=== PATIENT | female | born 1930 | race Caucasian/White ===

== ENCOUNTER 2018-04-25 14:05 | Inpatient (IN) ==
--- NOTE | 2018-04-25 14:45 | ED ---
HPI General Chief Complaint: Fall Stated Complaint: fall/rt arm injury Time Seen by Provider: 04/25/18 14:24 Source: patient Mode of arrival: ambulatory Limitations: no limitations History of Present Illness HPI Narrative: 87 old female here with right upper extremity pain and left knee pain after a trip and fall prior to arrival. She reports she tripped over a rug. She denies head injury loss of consciousness. She is anticoagulated on Coumadin denies altered sensation or weakness of the extremities. Pain is localized to the right upper extremity and left anterior knee. Severity is moderate. Aggravated by movement of the extremity and palpation. Slightly relieved with rest. Related Data Home Medications Medication Instructions Recorded Confirmed atorvastatin [Lipitor] 40 mg PO DAILY 04/25/18 04/25/18 calcium carbonate [Calcium 600] 600 mg PO BID 04/25/18 04/25/18 cyproheptadine 4 mg PO BID 04/25/18 04/25/18 denosumab [Prolia] 60 mg SUBCUT [id number] 04/25/18 04/25/18 diclofenac sodium [Voltaren] 1 applicatio TOPICAL DAILY PRN 04/25/18 04/25/18 furosemide 40 mg PO DAILY 04/25/18 04/25/18 hydrocodone-acetaminophen [Vicodin 1 tab PO Q4-6H PRN 04/25/18 04/25/18 HP] metoprolol tartrate 25 mg PO BID 04/25/18 04/25/18 nortriptyline 25 mg PO HS 04/25/18 04/25/18 potassium chloride [K-Tab] 10 meq PO DAILY 04/25/18 04/25/18 vitamin A22-[id number] acid 1 tab PO DAILY 04/25/18 04/25/18 vitamin K2 100 mcg PO DAILY 04/25/18 04/25/18 warfarin [Coumadin] See Label Instructions .ROUTE 04/25/18 04/25/18 .COMPLEX warfarin [Coumadin] See Label Instructions .ROUTE 04/25/18 04/25/18 .COMPLEX Allergies Allergy/AdvReac Type Severity Reaction Status Date / Time codeine Allergy Severe Nausea Unverified 04/25/18 14:12 monosodium glutamate Allergy Severe Anaphylaxis Unverified 04/25/18 14:12 lovastatin AdvReac Intermediate ELEVATED Unverified 04/25/18 14:12 LIVER ENZYMES phospholipids AdvReac Ulcers Uncoded 04/25/18 17:05 Review of Systems ROS: all other systems reviewed are negative [facility] [place] Medical History Medical History A-fib (Acute) Age related osteoporosis (Acute) CHF (congestive heart failure) (Acute) High cholesterol (Acute) History of GI bleed (Acute) History of hysterectomy (Acute) Hypertension (Acute) Osteoarthritis (Acute) Pacemaker (Acute) Surgical History Surgical History H/O varicose vein ligation and stripping (Acute) History of prior ablation treatment (Acute) Hx of bilateral cataract extraction (Acute) Hx of tonsillectomy (Acute) Social History Social History Substance History: No History of Abuse Smoking Status: Never smoker How Often Do You Have a Drink Containing Alcohol: Never Recent Travel in [facility] within the Last 8 Weeks: No Recent Out of Country Travel within the Last 8 Weeks: No Immunization History Tetanus Immunization: >5 Years Exam Narrative Exam Narrative: GENERAL: Well-nourished, well-developed patient. SKIN: Focused skin assessment warm/dry. HEAD: Normocephalic. Atraumatic EYES: PERRLA. EOMI. No injection or drainage. NECK: Supple, trachea midline. No cervical midline tenderness. CARDIOVASCULAR: Regular rate and rhythm without murmurs, gallops, or rubs. RESPIRATORY: Breath sounds equal bilaterally. No accessory muscle use. GASTROINTESTINAL: Abdomen soft, non-tender, nondistended. MUSCULOSKELETAL: No cyanosis, or edema. No chest wall tenderness.+ Tenderness to the left hip. RUE: Tenderness throughout the entire humerus and forearm. Notable swelling and ecchymosis to the distal humerus. Palpable radial pulse. Distal sensation intact. Cap refill intact. LLE: Notable swelling and ecchymosis to the anterior aspect of the left knee. Tenderness to palpation. No obvious deformity. Limited flexion extension due to pain. Palpable distal pulses. Distal sensation intact. Cap refill intact. BACK: Nontender spine without obvious deformity. No CVA tenderness. Course Initial Documented Vital Signs Temperature 98.2 F 04/25/18 14:08 Pulse Rate 84 04/25/18 14:08 Respiratory Rate 16 04/25/18 14:08 Blood Pressure 102/65 04/25/18 14:08 Pulse Oximetry 100 04/25/18 14:08 Last Documented Vital Signs Temperature 97.8 F 04/26/18 04:30 Pulse Rate 80 04/26/18 04:30 Respiratory Rate 18 04/26/18 04:30 Blood Pressure 123/72 04/26/18 04:30 Pulse Oximetry 95 04/26/18 04:30 Medical Decision Making EMILY Attestation EMILY supervised visit: Yes Attestation: I, Dr. Cruz, have reviewed the advance practice practitioner's documentation and am in agreement, met with the patient face to face, made the diagnosis, and the medical decision making was done by me. *My assessment and Findings: Fracture humerus MDM Narrative Medical decision making narrative: 87 year old female here with injuries to the left hip, left knee, right upper extremity after trip and fall today. She has a normal neurologic exam. Right upper extremity is neurovascularly intact. She is anticoagulated on Coumadin. INR 3. X-ray reveal displaced fracture involving the distal humerus. Patient has significant pain which is difficult to control. Spoke with on-call orthopedist Dr. Green who reviewed x-rays. He reports this will need surgery. He would like patient transferred to the main hospital for surgical repair tentatively Wednesday or of this week. Patient will need to hold Coumadin. Speak with hospitalist regarding possible FFP in preparation for surgery. Spoke with Dr. Cohen [facility] who agrees to admit patient to their service. Medical Screen Exam Complete: Yes Emergency Medical Condition: Yes Differential Diagnosis Differential Diagnosis: Fracture, contusion, dislocation, subdural hematoma Lab Data Result diagrams: 04/26/18 05:54 04/26/18 05:54 Lab Results 04/25/18 04/25/18 04/25/18 Range/Units 16:22 16:22 16:22 CBC w Diff Auto diff final WBC 15.2 H (4.0-11.0) th/mm3 RBC 4.53 (4.00-5.30) mil/mm3 Hgb 14.0 (11.6-15.3) gm/dL Hct 43.0 (35.0-46.0) % MCV 94.8 (80.0-100.0) fL MCH 30.9 (27.0-34.0) pg MCHC 32.5 (32.0-36.0) % RDW 14.3 (11.6-17.2) % Plt Count 174 (150-450) th/mm3 MPV 11.0 (7.0-11.0) fL Neut % (Auto) 87.3 H (16.0-70.0) % Lymph % (Auto) 6.5 L (9.0-44.0) % Larue % (Auto) 4.4 (0.0-8.0) % Eos % (Auto) 0.4 (0.0-4.0) % Baso % (Auto) 1.4 (0.0-2.0) % Neut # (Auto) 13.2 H (1.8-7.7) th/mm3 Lymph # (Auto) 1.0 (1.0-4.8) th/mm3 Larue # (Auto) 0.7 (0.0-0.9) th/mm3 Eos # (Auto) 0.1 (0.0-0.4) th/mm3 Baso # (Auto) 0.2 (0.0-0.2) th/mm3 WBC Differential . Differential Comment . PT 29.9 H (9.8-11.6) sec INR 3.0 Ratio APTT 34.3 H (23.4-31.7) sec Sodium 140 (136-145) meq/L Potassium 3.8 (3.5-5.1) meq/L Chloride 101 (98-107) meq/L Carbon Dioxide 29.3 (21.0-32.0) meq/L Anion Gap 10 (5-15) meq/L BUN 7 (7-18) mg/dL Creatinine 0.96 (0.50-1.00) mg/dL Estimated GFR 55 L (>89) mL/min Random Glucose 125 H (74-106) mg/dL Calcium 8.3 L (8.5-10.1) mg/dL Ur Collection Type Urine Color (Yellw/Straw) Urine Clarity (Clear) Urine pH (5.0-8.5) Ur Specific [place] (1.002-1.035) Urine Protein (Neg-Trace) mg/dL Urine Glucose (UA) (Negative) mg/dL Urine Ketones (Negative) mg/dL Urine Occult Blood (Negative) Urine Nitrate (Negative) Urine Bilirubin (Negative) Urine Urobilinogen (Less than 2) mg/dL Ur Leukocyte Esterase (Negative) Ur Transition Epith Cell (None) /hpf Amorphous Sediment (None) /hpf Micro UA Comment Ur Microscopic Review Urine Collection Time hours 04/25/18 04/26/18 04/26/18 Range/Units 17:14 05:54 05:54 CBC w Diff WBC 10.6 (4.0-11.0) th/mm3 RBC 3.61 L (4.00-5.30) mil/mm3 Hgb 11.3 L D (11.6-15.3) gm/dL Hct 33.2 L (35.0-46.0) % MCV 92.1 (80.0-100.0) fL MCH 31.4 (27.0-34.0) pg MCHC 34.1 (32.0-36.0) % RDW 14.4 (11.6-17.2) % Plt Count 144 L (150-450) th/mm3 MPV 10.9 (7.0-11.0) fL Neut % (Auto) 75.1 H (16.0-70.0) % Lymph % (Auto) 15.1 (9.0-44.0) % Larue % (Auto) 9.7 H (0.0-8.0) % Eos % (Auto) 0.0 (0.0-4.0) % Baso % (Auto) 0.1 (0.0-2.0) % Neut # (Auto) 8.0 H (1.8-7.7) th/mm3 Lymph # (Auto) 1.6 (1.0-4.8) th/mm3 Larue # (Auto) 1.0 H (0.0-0.9) th/mm3 Eos # (Auto) 0.0 (0.0-0.4) th/mm3 Baso # (Auto) 0.0 (0.0-0.2) th/mm3 WBC Differential . Differential Comment Auto diff final PT 16.0 H D (9.8-11.6) sec INR 1.6 Ratio APTT (23.4-31.7) sec Sodium (136-145) meq/L Potassium (3.5-5.1) meq/L Chloride (98-107) meq/L Carbon Dioxide (21.0-32.0) meq/L Anion Gap (5-15) meq/L BUN (7-18) mg/dL Creatinine (0.50-1.00) mg/dL Estimated GFR (>89) mL/min Random Glucose (74-106) mg/dL Calcium (8.5-10.1) mg/dL Ur Collection Type Cath Urine Color Yellow (Yellw/Straw) Urine Clarity Clear (Clear) Urine pH 6.5 (5.0-8.5) Ur Specific [place] Less/equal 1.005 (1.002-1.035) Urine Protein Negative (Neg-Trace) mg/dL Urine Glucose (UA) Negative (Negative) mg/dL Urine Ketones Negative (Negative) mg/dL Urine Occult Blood Negative (Negative) Urine Nitrate Negative (Negative) Urine Bilirubin Negative (Negative) Urine Urobilinogen 0.2 (Less than 2) mg/dL Ur Leukocyte Esterase Negative (Negative) Ur Transition Epith Cell 1-5 H (None) /hpf Amorphous Sediment Few H (None) /hpf Micro UA Comment Cath-culture not ind Ur Microscopic Review Microscopic reviewed Urine Collection Time 1714 hours 04/26/18 Range/Units 05:54 CBC w Diff WBC (4.0-11.0) th/mm3 RBC (4.00-5.30) mil/mm3 Hgb (11.6-15.3) gm/dL Hct (35.0-46.0) % MCV (80.0-100.0) fL MCH (27.0-34.0) pg MCHC (32.0-36.0) % RDW (11.6-17.2) % Plt Count (150-450) th/mm3 MPV (7.0-11.0) fL Neut % (Auto) (16.0-70.0) % Lymph % (Auto) (9.0-44.0) % Larue % (Auto) (0.0-8.0) % Eos % (Auto) (0.0-4.0) % Baso % (Auto) (0.0-2.0) % Neut # (Auto) (1.8-7.7) th/mm3 Lymph # (Auto) (1.0-4.8) th/mm3 Larue # (Auto) (0.0-0.9) th/mm3 Eos # (Auto) (0.0-0.4) th/mm3 Baso # (Auto) (0.0-0.2) th/mm3 WBC Differential Differential Comment PT (9.8-11.6) sec INR Ratio APTT (23.4-31.7) sec Sodium 138 (136-145) meq/L Potassium 3.9 (3.5-5.1) meq/L Chloride 100 (98-107) meq/L Carbon Dioxide 29.6 (21.0-32.0) meq/L Anion Gap 8 (5-15) meq/L BUN 12 (7-18) mg/dL Creatinine 0.91 (0.50-1.00) mg/dL Estimated GFR 58 L (>89) mL/min Random Glucose 115 H (74-106) mg/dL Calcium 7.9 L (8.5-10.1) mg/dL Ur Collection Type Urine Color (Yellw/Straw) Urine Clarity (Clear) Urine pH (5.0-8.5) Ur Specific [place] (1.002-1.035) Urine Protein (Neg-Trace) mg/dL Urine Glucose (UA) (Negative) mg/dL Urine Ketones (Negative) mg/dL Urine Occult Blood (Negative) Urine Nitrate (Negative) Urine Bilirubin (Negative) Urine Urobilinogen (Less than 2) mg/dL Ur Leukocyte Esterase (Negative) Ur Transition Epith Cell (None) /hpf Amorphous Sediment (None) /hpf Micro UA Comment Ur Microscopic Review Urine Collection Time hours Imaging Data Radiologist's impression: Chest X-Ray 04/25/18 00:00 CONCLUSION: Interface in the right upper chest nonspecific with regard to skinfold versus pneumothorax. Recommend performing expiratory view of the chest for further evaluation. Cervical Spine CT 04/25/18 14:36 CONCLUSION: 1. No evidence of acute cervical compression fracture. 2. Degenerative changes of the cervical spine, as detailed above. 3. Mild to moderate central canal narrowing at C5-6. 4. Numerous lucencies throughout the cervical spine. While these may be degenerative, neoplasm cannot be entirely excluded. Recommend clinical correlation with history of malignancy. Forearm X-Ray 04/25/18 14:36 CONCLUSION: No acute fracture of the forearm identified. Head CT 04/25/18 14:36 CONCLUSION: Atrophy, otherwise negative for an acute process. Noel Bonds MD FACR . Hip X-Ray 04/25/18 14:36 CONCLUSION: Osteopenia, negative for fracture. Humerus X-Ray 04/25/18 14:36 CONCLUSION: Displaced fracture involving the distal humerus as above. Knee X-Ray 04/25/18 14:36 CONCLUSION: Mild osteoarthritis. Chest X-Ray 04/25/18 19:08 CONCLUSION: No evidence of pneumothorax on this expiratory view of the chest. Discharge Plan Discharge Disposition Patient Disposition: 30 Still Patient Discharge Details Diagnosis: Fracture, humerus closed Physicians Team ED Provider: Emre Cruz ED Midlevel Provider: Aga Hernandes Primary Care Provider: Jorge Gee Attending Provider: Jesus Cohen Other Providers: Kody Green ; Ralph Pink Status ED Status: Left Department Discharge Information Discharge Date/Time: 04/25/18 19:55
--- NOTE | 2018-04-25 15:09 | XR ---
EXAM DATE: 04/25/2018 3:05 PM EST AGE/SEX: 87 years / Female INDICATIONS: Right forearm pain; fall today. CLINICAL DATA: This is the patient's initial encounter. Patient reports that signs and symptoms have been present for 1 day and indicates a pain score of 10/10. MEDICAL/SURGICAL HISTORY: None. None. COMPARISON: [facility], HUMERUS RIGHT MIN 2V, 04/25/2018. . FINDINGS: Bony structures are intact and in normal alignment. There is osteopenia. There are degenerative ennis es within the wrist. CONCLUSION: No acute fracture of the forearm identified. Electronically signed by: Rodrick Bonds MD 04/25/2018 3:08 PM EST
--- NOTE | 2018-04-25 15:10 | XR ---
EXAM DATE: 04/25/2018 3:08 PM EST AGE/SEX: 87 years / Female INDICATIONS: Right humerus pain; fall today. CLINICAL DATA: This is the patient's initial encounter. Patient reports that signs and symptoms have been present for 1 day and indicates a pain score of 10/10. MEDICAL/SURGICAL HISTORY: None. . Right total shoulder. COMPARISON: [facility], FOREARM RIGHT 2V, 04/25/2018. . FINDINGS: The examination demonstrates a 100% displaced spiral fracture through the distal humerus. This begins just below the patient's shoulder arthroplasty. CONCLUSION: Displaced fracture involving the distal humerus as above. Electronically signed by: Rodrick Bonds MD 04/25/2018 3:09 PM EST
--- NOTE | 2018-04-25 15:11 | XR ---
EXAM DATE: 04/25/2018 3:09 PM EST AGE/SEX: 87 years / Female INDICATIONS: Left knee pain; fall today. CLINICAL DATA: This is the patient's initial encounter. Patient reports that signs and symptoms have been present for 1 day and indicates a pain score of 4/10. MEDICAL/SURGICAL HISTORY: None. None. COMPARISON: No prior exams available for comparison. FINDINGS: The examination demonstrates mild tricompartmental osteoarthritis. 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 No acute fractures seen. Note is made of advanced atherosclerotic plaquing in the tibial vessels and some calcification along the interosseous membrane in the calf. CONCLUSION: Mild osteoarthritis. Electronically signed by: Rodrick Bonds MD 04/25/2018 3:10 PM EST
--- NOTE | 2018-04-25 15:11 | XR ---
EXAM DATE: 04/25/2018 3:06 PM EST AGE/SEX: 87 years / Female INDICATIONS: Left hip pain; fall today. CLINICAL DATA: This is the patient's initial encounter. Patient reports that signs and symptoms have been present for 1 day and indicates a pain score of 4/10. MEDICAL/SURGICAL HISTORY: None. None. COMPARISON: No prior exams available for comparison. FINDINGS: Bony structures are intact and in normal alignment. Joints are intact without dislocation or signifi cant arthropathy. Osseous density is normal. Soft tissues are unremarkable. No radiopaque foreign bodies seen. CONCLUSION: Osteopenia, negative for fracture. Electronically signed by: Noel Bonds MD 04/25/2018 3:10 PM EST
[2018-04-25] MEDS ORDERED: Morphine Inj 4 MG/ML Vial IM ONE (16:03)
[2018-04-25 16:32] LABS: Baso # (Auto) 0.2 th/mm3 (0.0-0.2); Baso % (Auto) 1.4 % (0.0-2.0); Eos # (Auto) 0.1 th/mm3 (0.0-0.4); Eos % (Auto) 0.4 % (0.0-4.0); Lymph % (Auto) 6.5 % (9.0-44.0); Mean Corpuscular HGB Conc 32.5 % (32.0-36.0); Mean Corpuscular Hemoglobin 30.9 pg (27.0-34.0); Mean Corpuscular Volume 94.8 fL (80.0-100.0); Mono # (Auto) 0.7 th/mm3 (0.0-0.9); Mono % (Auto) 4.4 % (0.0-8.0); Neut # (Auto) 13.2 th/mm3 (1.8-7.7); Neut % (Auto) 87.3 % (16.0-70.0); Platelet Count 174 th/mm3 (150-450); Red Blood Count 4.53 mil/mm3 (4.00-5.30); Red Cell Distribution Width 14.3 % (11.6-17.2); White Blood Count 15.2 th/mm3 (4.0-11.0)
[2018-04-25 16:44] LABS: Potassium 3.8 meq/L (3.5-5.1)
[2018-04-25 16:46] LABS: Calcium 8.3 mg/dL (8.5-10.1)
[2018-04-25 16:47] LABS: Activated Partial Thrombo Time 34.3 sec (23.4-31.7); Carbon Dioxide 29.3 meq/L (21.0-32.0); Prothrombin Time 29.9 sec (9.8-11.6)
--- NOTE | 2018-04-25 16:47 | CT ---
EXAM DATE: 04/25/2018 4:45 PM EST AGE/SEX: 87 years / Female INDICATIONS: Fall. Head and neck pain. CLINICAL DATA: This is the patient's initial encounter. Patient reports that signs and symptoms have been present for 1 day and indicates a pain score of 6/10. MEDICAL/SURGICAL HISTORY: Cardiovascular disease. Congestive heart failure. Hypertension. Pacemak er. Hysterectomy. RADIATION DOSE: 53.20 CTDI (mGy) COMPARISON: . TECHNIQUE: CT of the head without contrast. Using automated exposure control and adjustment of the mA and/or kV according to patient size, radiation dose was kept as low as reasonably achievable to ob tain optimal diagnostic quality images. DICOM format image data is available electronically for revi ew and comparison. FINDINGS: There is central and cortical atrophy with dilatation of ventricular and sulcal spaces. There is no parenchymal hemorrhage, acute infarction or mass lesion identified. There are no extra-axial fluid c ollections appreciated. Periventricular white matter changes are noted. The posterior fossa is unrem arkable with midline fourth ventricle. The portion of the orbits and paranasal sinuses visualized are unremarkable. CONCLUSION: Atrophy, otherwise negative for an acute process. Noel Bonds MD FACR . Electronically signed by: Noel Bonds MD 04/25/2018 4:46 PM EST
--- NOTE | 2018-04-25 16:57 | CT ---
EXAM DATE: 04/25/2018 4:45 PM EST AGE/SEX: 87 years / Female INDICATIONS: Fall. Head and neck pain. CLINICAL DATA: This is the patient's initial encounter. Patient reports that signs and symptoms have been present for 1 day and indicates a pain score of 9/10. MEDICAL/SURGICAL HISTORY: Cardiovascular disease. Congestive heart failure. Hypertension. Hys terectomy. Pacemaker. RADIATION DOSE: 26.67 CTDI (mGy) COMPARISON: No prior exams available for comparison. TECHNIQUE: Contiguous axial images were obtained using helical multirow detector technique. The vol umetric data was post-processed with multiplanar reconstruction in oblique axial, sagittal, and coron al planes. Using automated exposure control and adjustment of the mA and/or kV according to patient s ize, radiation dose was kept as low as reasonably achievable to obtain optimal diagnostic quality gladys ges. DICOM format image data is available electronically for review and comparison. FINDINGS: Rightward curvature of the cervical spine. Minimal retrolisthesis of C2 on C3 and C5 on C6. No eviden ce of acute compression fracture. Numerous lucencies throughout the cervical spine. Diffuse severe de generative disc disease essentially complete loss of the disc spaces. Posterior disc osteophyte compl ex at C5-6 results in [id number] central canal narrowing. Multilevel bilateral uncovertebral tirso int hypertrophy. Moderate to severe multilevel bilateral facet arthrosis. Focally severe neuroforamin al narrowing at C5-6 bilaterally and C6-7 on the left. Focal widening of the C4-5 neural foramina on the left. Subcentimeter nodule in the medial right lung apex. CONCLUSION: 1. No evidence of acute cervical compression fracture. 2. Degenerative changes of the cervical spine, as detailed above. 3. Mild to moderate central canal narrowing at C5-6. 4. Numerous lucencies throughout the cervical spine. While these may be degenerative, neoplasm canno t be entirely excluded. Recommend clinical correlation with history of malignancy. Electronically signed by: Libby Alvarez MD 04/25/2018 4:56 PM EST
[2018-04-25 17:19] LABS: Bilirubin,Urine Negative (Negative); Clarity,Urine Clear (Clear); Color,Urine Yellow (Yellw/Straw); Glucose,Urine (UA) Negative (Negative); Leukocyte Esterase,Urine Negative (Negative); Nitrite,Urine Negative (Negative); PH,Urine 6.5 (5.0-8.5); Specific Gravity,Urine Less/Equal 1.005 (1.002-1.035); Urobilinogen,Urine 0.2 mg/dL (Less than 2)
[2018-04-25 17:25] LABS: Amorphous Sediment,Urine Few /hpf
[2018-04-25] MEDS ORDERED: Morphine Inj 4 MG/ML Vial IV.PUSH ONE (17:47)
[2018-04-25] MEDS ORDERED: Acetaminophen 325 MG Tablet PO PRN (18:02)
--- NOTE | 2018-04-25 18:11 | P.HPIM ---
History of Present Illness Primary Care Physician: Jorge Gee MD, PhD Chief Complaint: fall History of Present Illness: This is an 87-year-old female patient with past medical history which includes atrial fibrillation, GERD, hypertension and hyperlipidemia. Patient presented to the emergency department today after a trip and fall. Patient reports right upper extremity pain and left knee pain after her fall. She reports she tripped over a rug. She denies head injury loss of consciousness. She is anticoagulated on Coumadin denies altered sensation or weakness of the extremities. Pain is localized to the right upper extremity and left anterior knee. Severity is moderate. Aggravated by movement of the extremity and palpation. Slightly relieved with rest. Patient denies fevers, chills, N/V/D/C, SOB or chest pain. Humerus X-Ray 04/25/18 Displaced fracture involving the distal humerus as above. INR 3.0 PMH: Previous skin cancer on nose status post radiation, atrial fibrillation, GERD, hypertension and hyperlipidemia Medications and Allergies Allergies Allergy/AdvReac Type Severity Reaction Status Date / Time codeine Allergy Severe Nausea Unverified 04/25/18 14:12 monosodium glutamate Allergy Severe Anaphylaxis Unverified 04/25/18 14:12 lovastatin AdvReac Intermediate ELEVATED Unverified 04/25/18 14:12 LIVER ENZYMES phospholipids AdvReac Ulcers Uncoded 04/25/18 17:05 Home Medications Medication Instructions Recorded Confirmed Type atorvastatin [Lipitor] 40 mg PO DAILY 04/25/18 04/25/18 History calcium carbonate [Calcium 600] 600 mg PO BID 04/25/18 04/25/18 History cyproheptadine 4 mg PO BID 04/25/18 04/25/18 History denosumab [Prolia] 60 mg SUBCUT [id number] 04/25/18 04/25/18 History diclofenac sodium [Voltaren] 1 applicatio TOPICAL DAILY PRN 04/25/18 04/25/18 History furosemide 40 mg PO DAILY 04/25/18 04/25/18 History hydrocodone-acetaminophen [Vicodin 1 tab PO Q4-6H PRN 04/25/18 04/25/18 History HP] metoprolol tartrate 25 mg PO BID 04/25/18 04/25/18 History nortriptyline 25 mg PO HS 04/25/18 04/25/18 History potassium chloride [K-Tab] 10 meq PO DAILY 04/25/18 04/25/18 History vitamin [id number] acid 1 tab PO DAILY 04/25/18 04/25/18 History vitamin K2 100 mcg PO DAILY 04/25/18 04/25/18 History warfarin [Coumadin] See Label Instructions .ROUTE 04/25/18 04/25/18 History .COMPLEX warfarin [Coumadin] See Label Instructions .ROUTE 04/25/18 04/25/18 History .COMPLEX Active Medications: Active Medications Acetaminophen (Tylenol) 650 mg PO Q4H PRN PRN Reason: Temp > 100.4 Al Hydroxide/Mg Hydroxide (Milk Of Magnesia Liq) 30 ml PO Q12H PRN PRN Reason: Mild Constipation Potassium Chloride/Sodium Chloride (Potassium Chlor 20 Meq/Nacl 0.45% Inj) 1, 000 mls @ 84 mls/hr IV.CONT .[id number] ESHA Ondansetron HCl (Zofran Inj) 4 mg IV.PUSH Q6H PRN PRN Reason: NAUSEA OR VOMITING Phytonadione (Mephyton Liq) 5 mg PO DAILY ESHA Senna/Docusate Sodium (Nichol-Colace) 1 tab PO BID ESHA Sodium Chloride (Ns Flush) 2 ml IV.FLUSH PRN PRN PRN Reason: FLUSH AFTER USING IV ACCESS Physical Exam Vital signs: Last Vital Signs Temp 98.2 F 04/25/18 14:08 Pulse 90 04/25/18 17:55 Resp 20 04/25/18 17:55 BP 109/66 04/25/18 17:55 Pulse Ox 98 04/25/18 17:55 Results Labs CBC & Chem 7: 04/25/18 16:22 04/25/18 16:22 Caprini VTE Risk Assessment Caprini Risk Assessment Model: Point Value = 1 Point Value = 2 Point Value = 3 Point Value = 5 Age 41-60 Minor surgery BMI > 25 kg/m2 Swollen legs Varicose veins or History of unexplained or recurrent spontaneous Oral contraceptives or hormone replacement Sepsis (< 1 month) Serious lung disease, including pneumonia (< 1 month) Abnormal pulmonary function Acute myocardial infarction Congestive heart failure (< 1 month) History of inflammatory bowel disease Medical patient at bed rest Age 61-74 Arthroscopic surgery Major open surgery (> 45 min) Laparoscopic surgery (> 45 min) Malignancy Confined to bed (> 72 hours) Immobilizing plaster cast Central venous access Age >= 75 History of VTE Family history of VTE Factor V Leiden Prothrombin [id number] Lupus anticoagulant Anticardiolipin antibodies Elevated serum homocysteine Heparin-induced thrombocytopenia Other congenital or acquired thrombophilia Stroke (< 1 month) Elective arthroplasty Hip, pelvis, or leg fracture Acute spinal cord injury (< 1 month) Prophylaxis Regimen: Total Risk Factor Score Risk Level Prophylaxis Regimen 0-1 Low Early ambulation 2 Moderate Order ONE of the following: *Sequential Compression Device (SCD) *Heparin 5000 units SQ BID 3-4 Higher Order ONE of the following medications: *Heparin 5000 units SQ TID *Enoxaparin/Lovenox 40 mg SQ daily (WT < 150 kg, CrCl > 30 mL/min) *Enoxaparin/Lovenox 30 mg SQ daily (WT < 150 kg, CrCl > 10-29 mL/min) *Enoxaparin/Lovenox 30 mg SQ BID (WT < 150 kg, CrCl > 30 mL/min) AND/OR *Sequential Compression Device (SCD) 5 or more Highest Order ONE of the following medications: *Heparin 5000 units SQ TID (Preferred with Epidurals) *Enoxaparin/Lovenox 40 mg SQ daily (WT < 150 kg, CrCl > 30 mL/min) *Enoxaparin/Lovenox 30 mg SQ daily (WT < 150 kg, CrCl > 10-29 mL/min) *Enoxaparin/Lovenox 30 mg SQ BID (WT < 150 kg, CrCl > 30 mL/min) AND *Sequential Compression Device (SCD) Assessment and Plan Plan This is an 87-year-old female patient with past medical history which includes atrial fibrillation, GERD, hypertension and hyperlipidemia. Patient presented to the emergency department today after a trip and fall. Patient reports right upper extremity pain and left knee pain after her fall. She reports she tripped over a rug. She denies head injury loss of consciousness. She is anticoagulated on Coumadin denies altered sensation or weakness of the extremities. Pain is localized to the right upper extremity and left anterior knee. Severity is moderate. Aggravated by movement of the extremity and palpation. Slightly relieved with rest. Patient denies fevers, chills, N/V/D/C, SOB or chest pain. Cervical Spine CT 04/25/18 1. No evidence of acute cervical compression fracture. 2. Degenerative changes of the cervical spine, as detailed above. 3. Mild to moderate central canal narrowing at C5-6. 4. Numerous lucencies throughout the cervical spine. While these may be degenerative, neoplasm cannot be entirely excluded. Recommend clinical correlation with history of malignancy. Forearm X-Ray 04/25/18 No acute fracture of the forearm identified. Head CT 04/25/18 Atrophy, otherwise negative for an acute process. Hip X-Ray 04/25/18 Osteopenia, negative for fracture. Humerus X-Ray 04/25/18 Displaced fracture involving the distal humerus as above. Knee X-Ray 04/25/18 Mild osteoarthritis.
[2018-04-25] MEDS ORDERED: HYDROmorphone PF Inj 0.5 MG/0.5 ML Syringe IV.PUSH PRN (18:13)
[2018-04-25] MEDS ORDERED: KCL 20 mEq/NACL 0.45% Inj 1,000 ML IV.CONT SCH (18:15)
--- NOTE | 2018-04-25 18:39 | XR ---
EXAM DATE: 04/25/2018 6:21 PM EST AGE/SEX: 87 years / Female INDICATIONS: Evaluate for pneumonia, pneumothorax, and communicable disease. Preop for right humeru s surgery. CLINICAL DATA: This is the patient's initial encounter. Patient reports that signs and symptoms have been present for 1 day and indicates a pain score of 0/10. MEDICAL/SURGICAL HISTORY: . Cardiovascular disease. Congestive heart failure. Hypertension. . Hysterectomy. Pacemaker. [place] [facility] [place]. [facility], CHEST SINGLE AP, 05/04/2011. . FINDINGS: The lungs are hyperaerated. No evidence of infiltrate or pleural effusion. Both hemidiaphragms well d elineated. Cardiac pacer with [address] Metallic suture mid left clavicle. Angiocath in the r ight supraclavicular region. In the lateral and upper right chest, there are 2 interfaces which are of uncertain significance; one probably represents skinfold from the axilla. The other, located in the interspace posterior fourth fifth and sixth ribs could represent either pneumothorax or skinfold. CONCLUSION: Interface in the right upper chest nonspecific with regard to skinfold versus pneumothorax. Recommend performing expiratory view of the chest for further evaluation. Electronically signed by: King Hua MD 04/25/2018 6:37 PM EST
--- NOTE | 2018-04-25 19:40 | XR ---
EXAM DATE: 04/25/2018 7:24 PM EST AGE/SEX: 87 years / Female INDICATIONS: Evaluate for pneumothorax. CLINICAL DATA: This is the patient's subsequent encounter. Patient reports that signs and symptoms h ave been present for 1 day and indicates a pain score of 0/10. MEDICAL/SURGICAL HISTORY: . Cardiovascular disease. Congestive heart failure. Hypertension. . Hysterectomy. Pacemaker. COMPARISON: [facility], CHEST 1V SINGLE AP, 04/25/2018. . FINDINGS: A frontal expiratory view chest was performed. Lung markings are seen in the periphery of both lungs. Several interfaces are projected over the lateral right chest which probably represent skin folds an d has similar appearance to the prior chest x-ray. The interface of the right apex is not reproduced. The heart is normal size. Both hemidiaphragms well delineated. CONCLUSION: No evidence of pneumothorax on this expiratory view of the chest. Electronically signed by: King Hua MD 04/25/2018 7:39 PM EST
[2018-04-25] MEDS: Senna/Docusate Sodium 8.6/50 MG Tablet PO SCH (23:32)
[2018-04-25] MEDS: Metoprolol Tartrate 25 MG Tablet PO SCH (23:32)
[2018-04-25] MEDS: Calcium Carbonate 500 MG Tablet PO SCH (23:33)
[2018-04-25] MEDS: Nortriptyline 25 MG Capsule PO SCH (23:33)
[2018-04-25] MEDS: KCL 20 mEq/NACL 0.45% Inj 1,000 ML IV.CONT SCH (23:35)
[2018-04-26 06:23] LABS: Baso % (Auto) 0.1 % (0.0-2.0); Hematocrit 33.2 % (35.0-46.0); Hemoglobin 11.3 gm/dL (11.6-15.3); Lymph # (Auto) 1.6 th/mm3 (1.0-4.8); Lymph % (Auto) 15.1 % (9.0-44.0); Mean Corpuscular HGB Conc 34.1 % (32.0-36.0); Mean Corpuscular Hemoglobin 31.4 pg (27.0-34.0); Mean Corpuscular Volume 92.1 fL (80.0-100.0); Mean Platelet Volume 10.9 fL (7.0-11.0); Mono % (Auto) 9.7 % (0.0-8.0); Neut % (Auto) 75.1 % (16.0-70.0); Platelet Count 144 th/mm3 (150-450); Red Blood Count 3.61 mil/mm3 (4.00-5.30); Red Cell Distribution Width 14.4 % (11.6-17.2); White Blood Count 10.6 th/mm3 (4.0-11.0)
[2018-04-26 06:37] LABS: Calcium 7.9 mg/dL (8.5-10.1); Carbon Dioxide 29.6 meq/L (21.0-32.0); Potassium 3.9 meq/L (3.5-5.1)
[2018-04-26 06:39] LABS: INR 1.6 Ratio
--- NOTE | 2018-04-26 06:48 | P.PNOP ---
Subjective Interval history: Transferred from [place] due to fracture of right humerus. Previous right shoulder replacement many years ago. She is splinted. No other injuries. Patient is on Coumadin with an INR of 3.0 yesterday Physical Exam Vital signs: Vital Signs 04/25/18 14:08 04/25/18 17:00 04/25/18 17:55 Temperature 98.2 F Pulse Rate 84 80 90 Respiratory Rate 16 18 20 Blood Pressure 102/65 117/60 109/66 Pulse Oximetry 100 96 98 04/25/18 20:45 04/25/18 23:40 04/26/18 04:30 Temperature 97.9 F 97.8 F 97.8 F Pulse Rate 88 81 80 Respiratory Rate 18 17 18 Blood Pressure 113/79 120/60 123/72 Pulse Oximetry 97 99 95 Intake & Output 04/25/18 04/25/18 04/26/18 06:59 18:59 06:59 Intake Total 120 / 120 Output Total 0 / 0 Balance 120 / 120 Weight 44.8 kg 44.8 kg Intake: Oral 120 / 120 Output: Urine 0 / 0 Other: # Voids 0 Date of Last Bowel Movement 04/24/18 Narrative: Right upper extremity: Splint intact. No pain wrist or finger movement. Intact sensation of her radial ulnar median nerve distributions with good capillary refills. Left upper extremity: Full range of motion neurovascular intact Bilateral lower extremities: Full range of motion and neurovascularly intact Results - Labs CBC & Chem 7: 04/26/18 05:54 04/26/18 05:54 Laboratory Results - last 24 hr 04/25/18 04/25/18 04/25/18 16:22 16:22 16:22 CBC w Diff Auto diff final WBC 15.2 H RBC 4.53 Hgb 14.0 Hct 43.0 MCV 94.8 MCH 30.9 MCHC 32.5 RDW 14.3 Plt Count 174 MPV 11.0 Neut % (Auto) 87.3 H Lymph % (Auto) 6.5 L Desha % (Auto) 4.4 Eos % (Auto) 0.4 Baso % (Auto) 1.4 Neut # (Auto) 13.2 H Lymph # (Auto) 1.0 Desha # (Auto) 0.7 Eos # (Auto) 0.1 Baso # (Auto) 0.2 WBC Differential . Differential Comment . PT 29.9 H INR 3.0 APTT 34.3 H Sodium 140 Potassium 3.8 Chloride 101 Carbon Dioxide 29.3 Anion Gap 10 BUN 7 Creatinine 0.96 Estimated GFR 55 L Random Glucose 125 H Calcium 8.3 L Ur Collection Type Urine Color Urine Clarity Urine pH Ur Specific [place] Urine Protein Urine Glucose (UA) Urine Ketones Urine Occult Blood Urine Nitrate Urine Bilirubin Urine Urobilinogen Ur Leukocyte Esterase Ur Transition Epith Cell Amorphous Sediment Micro UA Comment Ur Microscopic Review Urine Collection Time 04/25/18 04/26/18 04/26/18 17:14 05:54 05:54 CBC w Diff WBC 10.6 RBC 3.61 L Hgb 11.3 L D Hct 33.2 L MCV 92.1 MCH 31.4 MCHC 34.1 RDW 14.4 Plt Count 144 L MPV 10.9 Neut % (Auto) 75.1 H Lymph % (Auto) 15.1 Desha % (Auto) 9.7 H Eos % (Auto) 0.0 Baso % (Auto) 0.1 Neut # (Auto) 8.0 H Lymph # (Auto) 1.6 Desha # (Auto) 1.0 H Eos # (Auto) 0.0 Baso # (Auto) 0.0 WBC Differential . Differential Comment Auto diff final PT 16.0 H D INR 1.6 APTT Sodium Potassium Chloride Carbon Dioxide Anion Gap BUN Creatinine Estimated GFR Random Glucose Calcium Ur Collection Type Cath Urine Color Yellow Urine Clarity Clear Urine pH 6.5 Ur Specific [place] Less/equal 1.005 Urine Protein Negative Urine Glucose (UA) Negative Urine Ketones Negative Urine Occult Blood Negative Urine Nitrate Negative Urine Bilirubin Negative Urine Urobilinogen 0.2 Ur Leukocyte Esterase Negative Ur Transition Epith Cell 1-5 H Amorphous Sediment Few H Micro UA Comment Cath-culture not ind Ur Microscopic Review Microscopic reviewed Urine Collection Time 1714 04/26/18 05:54 CBC w Diff WBC RBC Hgb Hct MCV MCH MCHC RDW Plt Count MPV Neut % (Auto) Lymph % (Auto) Desha % (Auto) Eos % (Auto) Baso % (Auto) Neut # (Auto) Lymph # (Auto) Desha # (Auto) Eos # (Auto) Baso # (Auto) WBC Differential Differential Comment PT INR APTT Sodium 138 Potassium 3.9 Chloride 100 Carbon Dioxide 29.6 Anion Gap 8 BUN 12 Creatinine 0.91 Estimated GFR 58 L Random Glucose 115 H Calcium 7.9 L Ur Collection Type Urine Color Urine Clarity Urine pH Ur Specific [place] Urine Protein Urine Glucose (UA) Urine Ketones Urine Occult Blood Urine Nitrate Urine Bilirubin Urine Urobilinogen Ur Leukocyte Esterase Ur Transition Epith Cell Amorphous Sediment Micro UA Comment Ur Microscopic Review Urine Collection Time - Imaging Impressions Chest X-Ray 04/25/18 00:00 CONCLUSION: Interface in the right upper chest nonspecific with regard to skinfold versus pneumothorax. Recommend performing expiratory view of the chest for further evaluation. Cervical Spine CT 04/25/18 14:36 CONCLUSION: 1. No evidence of acute cervical compression fracture. 2. Degenerative changes of the cervical spine, as detailed above. 3. Mild to moderate central canal narrowing at C5-6. 4. Numerous lucencies throughout the cervical spine. While these may be degenerative, neoplasm cannot be entirely excluded. Recommend clinical correlation with history of malignancy. Forearm X-Ray 04/25/18 14:36 CONCLUSION: No acute fracture of the forearm identified. Head CT 04/25/18 14:36 CONCLUSION: Atrophy, otherwise negative for an acute process. Noel Bonds MD FACR . Hip X-Ray 04/25/18 14:36 CONCLUSION: Osteopenia, negative for fracture. Humerus X-Ray 04/25/18 14:36 CONCLUSION: Displaced fracture involving the distal humerus as above. Knee X-Ray 04/25/18 14:36 CONCLUSION: Mild osteoarthritis. Chest X-Ray 04/25/18 19:08 CONCLUSION: No evidence of pneumothorax on this expiratory view of the chest. Assessment and Plan - Assessment and Plan Right periprosthetic humeral shaft fracture Maintain splint Due to INR of 3.0 surgery is unable to be proceeded with due to bleeding risks. Hold Coumadin Give vitamin K Surgery will either be tomorrow or when blood is therapeutic Nonweightbearing right upper extremity Resume diet Recheck INR tomorrow morning
[2018-04-26] MEDS: KCL 20 mEq/NACL 0.45% Inj 1,000 ML IV.CONT SCH (08:54)
[2018-04-26] MEDS ORDERED: Phytonadione 5 MG/SWFI 5 ML Oral Syringe PO SCH (09:00)
[2018-04-26] MEDS: HYDROmorphone PF Inj 1 MG/ML Ampul IV.PUSH PRN ×2 (09:40→13:45)
[2018-04-26] MEDS: Metoprolol Tartrate 25 MG Tablet PO SCH ×2 (09:58→20:29)
[2018-04-26] MEDS: Senna/Docusate Sodium 8.6/50 MG Tablet PO SCH ×2 (09:58→20:30)
[2018-04-26] MEDS: Calcium Carbonate 500 MG Tablet PO SCH ×2 (09:59→20:30)
[2018-04-26] MEDS ORDERED: Phytonadione 2.5 MG/SWFI 2.5 ML Oral Syringe PO ONE (11:00)
--- NOTE | 2018-04-26 11:56 | P.HPIM ---
History of Present Illness Primary Care Physician: Jorge Gee MD, PhD Chief Complaint: right upper extremity pain and left knee pain after a trip and fall History of Present Illness: This is an 87-year-old female patient with past medical history which includes atrial fibrillation currently on Coumadin INR admission 3.0, GERD, hypertension, hyperlipidemia and pulmonary hypertension. Patient was in her normal state of health until she tripped over a rug causing her to fall. Patient presented to [facility] with complaints of right upper extremity pain and left knee pain after a trip and fall prior to arrival. She reports she tripped over a rug. She denies head injury loss of consciousness., altered sensation or weakness of the extremities. Pain is localized to the right upper extremity and left anterior knee. Severity is moderate. Aggravated by movement of the extremity and palpation. Slightly relieved with rest. Patient denies shortness of breath chest pain nausea vomiting diarrhea constipation fevers or chills. PMH: atrial fibrillation currently on Coumadin INR admission 3.0, GERD, hypertension , hyperlipidemia and pulmonary hypertension PSXH: Appendectomy, needle biopsy of the breast, cataract surgery, AV node ablation, colonoscopy, EGD, hemorrhoidectomy, nerve block trans-foraminal epidural cervical, pacemaker placement, total shoulder repair, tonsillectomy and adenoidectomy, THAO/BSO and ligation of varicose veins FMH: Reviewed and noncontributory Social history: Denies EtOH use tobacco use or illicit drug use Inpatient Certification Inpatient Certification: I certify that the inpatient services were ordered in accordance with Medicare regulations governing the order. This includes certification that hospital inpatient services are reasonable and necessary and in the case of services not specified as inpatient-only under 42 CFR 419.22(n), that they are appropriately provided as inpatient services in accordance to with the 2-midnight benchmark under 43 CFR 412.3(e) Estimated Total Length of Stay (Days): 3 Plans for Post Hospital Care: Not yet determined Medications and Allergies Allergies Allergy/AdvReac Type Severity Reaction Status Date / Time codeine Allergy Severe Nausea Unverified 04/25/18 14:12 monosodium glutamate Allergy Severe Anaphylaxis Unverified 04/25/18 14:12 lovastatin AdvReac Intermediate ELEVATED Unverified 04/25/18 14:12 LIVER ENZYMES phospholipids AdvReac Ulcers Uncoded 04/25/18 17:05 Home Medications Medication Instructions Recorded Confirmed Type atorvastatin [Lipitor] 40 mg PO DAILY 04/25/18 04/25/18 History calcium carbonate [Calcium 600] 600 mg PO BID 04/25/18 04/25/18 History cyproheptadine 4 mg PO BID 04/25/18 04/25/18 History denosumab [Prolia] 60 mg SUBCUT [id number] 04/25/18 04/25/18 History diclofenac sodium [Voltaren] 1 applicatio TOPICAL DAILY PRN 04/25/18 04/25/18 History furosemide 40 mg PO DAILY 04/25/18 04/25/18 History hydrocodone-acetaminophen [Vicodin 1 tab PO Q4-6H PRN 04/25/18 04/25/18 History HP] metoprolol tartrate 25 mg PO BID 04/25/18 04/25/18 History nortriptyline 25 mg PO HS 04/25/18 04/25/18 History potassium chloride [K-Tab] 10 meq PO DAILY 04/25/18 04/25/18 History vitamin [id number] acid 1 tab PO DAILY 04/25/18 04/25/18 History vitamin K2 100 mcg PO DAILY 04/25/18 04/25/18 History warfarin [Coumadin] See Label Instructions .ROUTE 04/25/18 04/25/18 History .COMPLEX warfarin [Coumadin] See Label Instructions .ROUTE 04/25/18 04/25/18 History .COMPLEX Active Medications: Active Medications Acetaminophen (Tylenol) 650 mg PO Q4H PRN PRN Reason: Temp > 100.4 Hydrocodone Bitart/Acetaminophen ([place] 5/325) 1 tab PO Q4H PRN PRN Reason: pain 1 - 5, Al Hydroxide/Mg Hydroxide (Milk Of Magnesia Liq) 30 ml PO Q12H PRN PRN Reason: Mild Constipation Atorvastatin Calcium (Lipitor) 40 mg PO DAILY [facility] [place] Last Admin: 04/26/18 09:58 Dose: 40 mg Calcium Carbonate (Oscal) 500 mg PO BID [facility] Last Admin: 04/26/18 09:59 Dose: 500 mg Hydromorphone HCl (Dilaudid Pf Inj) 0.5 mg IV.PUSH Q4H PRN PRN Reason: PAIN 6-10 Last Admin: 04/26/18 09:40 Dose: 0.5 mg Potassium Chloride/Sodium Chloride (Potassium Chlor 20 Meq/Nacl 0.45% Inj) 1, 000 mls @ 84 mls/hr IV.CONT .[id number] [facility] [place] Stop: 04/26/18 18:03 Last Admin: 04/26/18 08:54 Dose: Not Given Metoprolol Tartrate (Lopressor) 25 mg PO BID [facility] [place] Last Admin: 04/26/18 09:58 Dose: 25 mg Nortriptyline HCl (Pamelor) 25 mg PO HS [facility] [place] Last Admin: 04/25/18 23:33 Dose: 25 mg Ondansetron HCl (Zofran Inj) 4 mg IV.PUSH Q6H PRN PRN Reason: NAUSEA OR VOMITING Senna/Docusate Sodium (Nichol-Colace) 1 tab PO BID [facility] Last Admin: 04/26/18 09:58 Dose: 1 tab Sodium Chloride (Ns Flush) 2 ml IV.FLUSH PRN PRN PRN Reason: FLUSH AFTER USING IV ACCESS Physical Exam Vital signs: Last Vital Signs Temp 98.2 F 04/26/18 08:00 Pulse 79 04/26/18 08:00 Resp 18 04/26/18 08:00 BP 126/67 04/26/18 08:00 Pulse Ox 96 04/26/18 08:00 Narrative: GENERAL: This is a well-nourished, well-developed patient, in no apparent distress. CARDIOVASCULAR: reg rate and rhythm RESPIRATORY: Clear to auscultation. Breath sounds equal bilaterally. No wheezes , rales, or rhonchi. GASTROINTESTINAL: Abdomen soft, non-tender, nondistended. Normal active bowel sounds MUSCULOSKELETAL: Extremities without clubbing, cyanosis, or edema. NEURO: awake and alert, periods of confusion. Moves all ext x4 right upper extremity and left lower extremity motion limited by pain Results Labs CBC & Chem 7: 04/26/18 05:54 04/26/18 05:54 Caprini VTE Risk Assessment Caprini VTE Risk Assessment: Moderate/High Risk (score >= 2) Caprini Risk Assessment Model: Point Value = 1 Point Value = 2 Point Value = 3 Point Value = 5 Age 41-60 Minor surgery BMI > 25 kg/m2 Swollen legs Varicose veins or History of unexplained or recurrent spontaneous Oral contraceptives or hormone replacement Sepsis (< 1 month) Serious lung disease, including pneumonia (< 1 month) Abnormal pulmonary function Acute myocardial infarction Congestive heart failure (< 1 month) History of inflammatory bowel disease Medical patient at bed rest Age 61-74 Arthroscopic surgery Major open surgery (> 45 min) Laparoscopic surgery (> 45 min) Malignancy Confined to bed (> 72 hours) Immobilizing plaster cast Central venous access Age >= 75 History of VTE Family history of VTE Factor V Leiden Prothrombin [id number] Lupus anticoagulant Anticardiolipin antibodies Elevated serum homocysteine Heparin-induced thrombocytopenia Other congenital or acquired thrombophilia Stroke (< 1 month) Elective arthroplasty Hip, pelvis, or leg fracture Acute spinal cord injury (< 1 month) Prophylaxis Regimen: Total Risk Factor Score Risk Level Prophylaxis Regimen 0-1 Low Early ambulation 2 Moderate Order ONE of the following: *Sequential Compression Device (SCD) *Heparin 5000 units SQ BID 3-4 Higher Order ONE of the following medications: *Heparin 5000 units SQ TID *Enoxaparin/Lovenox 40 mg SQ daily (WT < 150 kg, CrCl > 30 mL/min) *Enoxaparin/Lovenox 30 mg SQ daily (WT < 150 kg, CrCl > 10-29 mL/min) *Enoxaparin/Lovenox 30 mg SQ BID (WT < 150 kg, CrCl > 30 mL/min) AND/OR *Sequential Compression Device (SCD) 5 or more Highest Order ONE of the following medications: *Heparin 5000 units SQ TID (Preferred with Epidurals) *Enoxaparin/Lovenox 40 mg SQ daily (WT < 150 kg, CrCl > 30 mL/min) *Enoxaparin/Lovenox 30 mg SQ daily (WT < 150 kg, CrCl > 10-29 mL/min) *Enoxaparin/Lovenox 30 mg SQ BID (WT < 150 kg, CrCl > 30 mL/min) AND *Sequential Compression Device (SCD) Assessment and Plan Plan This is an 87-year-old female patient with past medical history which includes atrial fibrillation currently on Coumadin INR admission 3.0, GERD, hypertension , hyperlipidemia and pulmonary hypertension. Patient was in her normal state of health until she tripped over a rug causing her to fall. Patient presented to [facility] with complaints of right upper extremity pain and left knee pain after a trip and fall prior to arrival. She reports she tripped over a rug. She denies head injury loss of consciousness., altered sensation or weakness of the extremities. Pain is localized to the right upper extremity and left anterior knee. Severity is moderate. Aggravated by movement of the extremity and palpation. Slightly relieved with rest. Patient denies shortness of breath chest pain nausea vomiting diarrhea constipation fevers or chills. Right periprosthetic humeral shaft fracture Chest X-Ray 04/25/18 Interface in the right upper chest nonspecific with regard to skinfold versus pneumothorax. Recommend performing expiratory view of the chest for further evaluation. Cervical Spine CT 04/25/18 1. No evidence of acute cervical compression fracture. 2. Degenerative changes of the cervical spine, as detailed above. 3. Mild to moderate central canal narrowing at C5-6. 4. Numerous lucencies throughout the cervical spine. While these may be degenerative, neoplasm cannot be entirely excluded. Recommend clinical correlation with history of malignancy. Forearm X-Ray 04/25/18 No acute fracture of the forearm identified. Head CT 04/25/18 Atrophy, otherwise negative for an acute process. Hip X-Ray 04/25/18 Osteopenia, negative for fracture. Humerus X-Ray 04/25/18 Displaced fracture involving the distal humerus as above. Knee X-Ray 04/25/18Mild osteoarthritis. Chest X-Ray 04/25/18 No evidence of pneumothorax on this expiratory view of the chest. Consult orthopedic surgery, appreciate input Maintain splint Due to INR of 3.0 surgery is unable to be proceeded with due to bleeding risks. Hold Coumadin Give vitamin K Surgery will either be tomorrow or when blood is therapeutic Nonweightbearing right upper extremity Resume diet Recheck INR tomorrow morning consult to case management, pt may need SNF placement at the end of hospitalizations. Pt lives with her daughter Atrial fibrillation currently on Coumadin INR admission 3.0 Hold Coumadin pending procedure Repeat INR 04/26 was 1.6 Vitamin K given Continue metoprolol 25 mg twice daily Hypertension Continue metoprolol 25 mg p.o. twice daily Hyperlipidemia Continue atorvastatin 40 mg p.o. daily DVT prophylaxis bilateral SCDs Attending Attestation The exam, history, and the medical decision-making described in the above note were completed with the assistance of the mid-level provider. I reviewed and agree with the findings presented. I attest that I had a [id number] encounter with the patient on the same day, and personally performed and documented my assessment and findings in the medical record. Patient examined. Assessment and plan formulated with Leslie Jimenes PA-C. I agree with the above. CT C-spine (04/25) made mention of multiple luncenies. Studies reviewed with radiology. Pt had multiple imaging studies in the ER d/t fall. CT head and other imaging studies did NOT show lytic lesions. Multiple myeloma unlikely. No further w/u H&P: Quality VTE Deep Vein Thrombosis/Pulmonary Embolism Present on Admission: No
--- NOTE | 2018-04-26 12:48 | ECG ---
Date Performed: 04/25/2018 Time Performed: 22:06:15 PTAGE: 87 years EKG: ELECTRONIC VENTRICULAR PACEMAKER ABNORMAL RHYTHM ECG Since the PREVIOUS TRACING , no significant change noted PREVIOUS TRACIN05/04/2011 16.13 DOCTOR: Amy Emerson Interpretating Date/Time 04/26/2018 12:46:17
--- NOTE | 2018-04-26 17:12 | P.DIET ---
Nutritional Evaluation Type of nutrition evaluation: initial Nutrition screening: Weight Loss > 10 lbs Subjective Subjective Comments: Pt visited. Pt's daughter and nursing specialist at bedside. Pt's daughter says pt' s wt loss has been gradual due to decreased appetite. Pt's daughter says pt needs meats chopped up d/t it takes pt a long time to masticate meats. Pt does not care for Ensure; does like ice cream and other types of dairy products. Daughter reports pt has been on an appetite stimulant, Cyproheptadine x 2 to 3- months, and says she hasnt noted any improvement in this pt's appetite. Objective - Diagnosis Right humerus fracture - Objective % IBW: 102 Body Weight Used for Calculations: Actual (44.8 kg) Energy Needs - Lower Range (kCal/kg): 28 Energy Needs - Upper Range (kCal/kg): 33 Lower Limit kCal/kg (kCals): 1,254 Upper Limit kCal/kg (kCals): 1,478 Lower Limit Protein Factor (Grams per Kg): 1.2 Upper Limit Protein Factor (Grams per Kg): 1.5 Lower Protein Needs (Protein): 54 Upper Protein Needs (Protein): 67 Dietitian Reviewed in Medical Record: Current diet, Curent medications, Intake & Output, Labs, Medical history Diet Order: NPO Oral Diet Intake Amount: Fair 50-75% Objective Comments: PMH includes: AFib, Pacemaker, Age related osteoporosis, CHF, high cholesterol, h/o GI bleed, HTN Meds include: Lipitor, Oscal, Lopressor LBM 04/24 Assessment Assessment: Pt is at nutritional risk r/t unintentional wt loss. Rec a Mech Soft diet w/ chopped meats and extra gravy. Send Mighty Shake TID(= 300 kcal and 9g protein per serving). Labs reviewed. Dietitian will follow. Recommendations: 1. Rec a Mech Soft diet w/chopped meats and extra gravy 2. Send Mighty Shake TID 3. Dietitian will follow Dietitian to Monitor: Lab values, Supplement acceptance, Intake & Output, Diet tolerance, Weight change, PO Intake, Diet advancement, Medical course
[2018-04-26 19:46] LABS: Bacteria,Urine Rare /hpf; Bilirubin,Urine Negative (Negative); Clarity,Urine Hazy (Clear); Color,Urine Amber (Yellw/Straw); Glucose,Urine (UA) Negative (Negative); Hyaline Casts,Urine 18 /lpf (0-3); Leukocyte Esterase,Urine Negative (Negative); Mucus,Urine Few /lpf (Occasional); Nitrite,Urine Negative (Negative); Specific Gravity,Urine 1.014 (1.002-1.035)
[2018-04-26] MEDS: Nortriptyline 25 MG Capsule PO SCH (20:29)
[2018-04-27] MEDS ORDERED: Chlorhexidine Gluconate 2% 1 Pack (2 Cloths) TOPICAL ONE (03:41)
[2018-04-27] MEDS ORDERED: Sodium Chlor 0.9% Inj 500 ML IV.SIG SCH (04:00)
[2018-04-27 05:56] LABS: Baso % (Auto) 0.5 % (0.0-2.0); Eos % (Auto) 0.3 % (0.0-4.0); Hematocrit 27.7 % (35.0-46.0); Hemoglobin 9.6 gm/dL (11.6-15.3); Lymph # (Auto) 2.8 th/mm3 (1.0-4.8); Lymph % (Auto) 30.9 % (9.0-44.0); Mean Corpuscular HGB Conc 34.7 % (32.0-36.0); Mean Corpuscular Hemoglobin 31.5 pg (27.0-34.0); Mean Corpuscular Volume 90.7 fL (80.0-100.0); Mean Platelet Volume 10.9 fL (7.0-11.0); Mono # (Auto) 1.3 th/mm3 (0.0-0.9); Mono % (Auto) 14.5 % (0.0-8.0); Neut # (Auto) 4.8 th/mm3 (1.8-7.7); Neut % (Auto) 53.8 % (16.0-70.0); Platelet Count 138 th/mm3 (150-450); Red Blood Count 3.05 mil/mm3 (4.00-5.30); Red Cell Distribution Width 13.8 % (11.6-17.2); White Blood Count 8.9 th/mm3 (4.0-11.0)
[2018-04-27 06:00] LABS: INR 1.2 Ratio; Prothrombin Time 12.4 sec (9.8-11.6)
[2018-04-27 06:11] LABS: Calcium 8.6 mg/dL (8.5-10.1); Potassium 4.3 meq/L (3.5-5.1)
[2018-04-27] MEDS: Metoprolol Tartrate 25 MG Tablet PO SCH ×3 (06:21→20:01)
[2018-04-27] MEDS ORDERED: Sugammadex Inj 200 MG/2 ML Vial IV.PUSH ONE (06:46)
[2018-04-27] MEDS ORDERED: HYDROmorphone PF Inj 2 MG/ML Vial ONE (06:46)
[2018-04-27] MEDS ORDERED: ceFAZolin 1 GM Premix Inj 2 GM/100 ML PIGGYBACK IV.SIG ONE (07:02)
--- NOTE | 2018-04-27 07:02 | P.PNOP ---
Subjective Interval history: Resting comfortably Physical Exam Vital signs: Vital Signs 04/26/18 08:00 04/26/18 12:00 04/26/18 14:15 Temperature 98.2 F 97.9 F Pulse Rate 79 83 Respiratory Rate 18 18 16 Blood Pressure 126/67 103/56 L Pulse Oximetry 96 04/26/18 16:00 04/26/18 19:35 04/26/18 22:47 Temperature 97.8 F 98.2 F Pulse Rate 80 86 98 H Respiratory Rate 18 18 Blood Pressure 116/53 L 103/58 L Pulse Oximetry 92 L 93 L 04/27/18 00:00 04/27/18 00:13 04/27/18 02:14 Temperature 98.4 F Pulse Rate 97 H 84 Respiratory Rate 18 18 Blood Pressure 110/54 L Pulse Oximetry 96 04/27/18 03:35 Temperature 97.4 F L Pulse Rate 86 Respiratory Rate 17 Blood Pressure 112/56 L Pulse Oximetry 98 Intake & Output 04/26/18 04/27/18 04/27/18 18:59 06:59 18:59 Intake Total 600 / 600 0 / 0 Output Total 300 / 300 800 / 800 Balance 300 / 300 -800 / -800 Weight 44.8 kg Intake: Oral 600 / 600 0 / 0 Output: Urine Amount (Catheter) 300 / 300 800 / 800 Straight 300 / 300 800 / 800 Other: # Voids 0 Date of Last Bowel Movement 04/24/18 04/25/18 # Bowel Movements 0 0 Narrative: Remains in long-arm splint to right upper extremity. She has intact sensation with full extension flexion of all fingers. Right upper extremity is marked by Dr. Early - Urinary Catheter Management Straight Cath placed during this visit: yes, but has since been removed by the nurse Reason for continuing: Not indwelling catheter Insertion date: 04/27/18 Insertion time: 04:00 Removal date: 04/27/18 Removal time: 05:30 Results - Labs CBC & Chem 7: 04/27/18 05:29 04/27/18 05:29 Laboratory Results - last 24 hr 04/26/18 04/27/18 04/27/18 16:43 05:29 05:29 WBC 8.9 RBC 3.05 L Hgb 9.6 L Hct 27.7 L MCV 90.7 MCH 31.5 MCHC 34.7 RDW 13.8 Plt Count 138 L MPV 10.9 Neut % (Auto) 53.8 Lymph % (Auto) 30.9 [place] % (Auto) 14.5 H Eos % (Auto) 0.3 Baso % (Auto) 0.5 Neut # (Auto) 4.8 Lymph # (Auto) 2.8 [place] # (Auto) 1.3 H Eos # (Auto) 0.0 Baso # (Auto) 0.0 WBC Differential . Differential Comment Auto diff final PT INR Sodium 137 Potassium 4.3 Chloride 101 Carbon Dioxide 30.0 Anion Gap 6 BUN 13 Creatinine 0.78 Estimated GFR 70 L Random Glucose 75 Calcium 8.6 Urine Color [place] Urine Clarity Hazy H Urine pH 5.0 Ur Specific [place] 1.014 Urine Protein Negative Urine Glucose (UA) Negative Urine Ketones Negative Urine Occult Blood Negative Urine Nitrate Negative Urine Bilirubin Negative Urine Urobilinogen Less than 2 Ur Leukocyte Esterase Negative Urine RBC 1 Urine WBC 1 Urine Bacteria Rare H Hyaline Casts 18 Urine Mucus Few H Micro UA Comment Cath-culture ind Ur Microscopic Review Not Reportable Urine Culture Comments Cath-cult indicated 04/27/18 05:29 WBC RBC Hgb Hct MCV MCH MCHC RDW Plt Count MPV Neut % (Auto) Lymph % (Auto) [place] % (Auto) Eos % (Auto) Baso % (Auto) Neut # (Auto) Lymph # (Auto) [place] # (Auto) Eos # (Auto) Baso # (Auto) WBC Differential Differential Comment PT 12.4 H INR 1.2 Sodium Potassium Chloride Carbon Dioxide Anion Gap BUN Creatinine Estimated GFR Random Glucose Calcium Urine Color Urine Clarity Urine pH Ur Specific [place] Urine Protein Urine Glucose (UA) Urine Ketones Urine Occult Blood Urine Nitrate Urine Bilirubin Urine Urobilinogen Ur Leukocyte Esterase Urine RBC Urine WBC Urine Bacteria Hyaline Casts Urine Mucus Micro UA Comment Ur Microscopic Review Urine Culture Comments Assessment and Plan - Assessment and Plan Right periprosthetic humeral shaft fracture Maintain splint INR is 1.2 this morning. We will be able to proceed with surgery today Sign consents Nonweightbearing right upper extremity
[2018-04-27] MEDS ORDERED: Lidocaine PF 1% Inj 5 ML Syringe OTHER ONE (07:19)
[2018-04-27] MEDS ORDERED: Post-op Orders (for Pharmacy) OTHER STA (08:47)
[2018-04-27] MEDS ORDERED: Morphine Inj 4 MG/ML Vial IV.PUSH PRN (08:47)
--- NOTE | 2018-04-27 08:54 | P.CONOP ---
[facility] Orthopedics Consult Note - [facility] Consult date: 04/27/18 Chief complaint: R humerus FX Narrative: Channing is an 87-year-old female. She had a fall. She tripped over a rug. She landed on her right arm. She had immediate right arm pain. She presented to [facility] emergency department. X-rays revealed a displaced distal humerus periprosthetic fracture. She was subsequent transferred to [facility]. She is currently awake and alert. Her only complaint is her right arm. Pain is severe and intense with movement. Pain is improved with rest. She denies dizziness, syncope, or loss of consciousness. She does take Coumadin for atrial fibrillation. She has a history of previous left shoulder replacement done by Dr. Barajas. Review of Systems Patient denies fevers, chills, weight loss, headache, visual changes, hearing loss, chest pain, palpitations, shortness of breath, nausea, vomiting, no urinary changes, diarrhea, bowel changes, neck pain, back pain, skin rashes, weakness of extremities, easy bleeding, enlarged lymph nodes, numbness of extremities, anxiety, or depression. Patient's social history, past medical history, and family history were reviewed on chart and with patient. [facility] - History History Provided By: Patient, Family Member, Medical Record - Medical History Medical History: Medical History (Last Reviewed 04/27/18 @ 08:52 by Ralph Pink MD) A-fib Age related osteoporosis CHF (congestive heart failure) High cholesterol History of GI bleed History of hysterectomy Hypertension Osteoarthritis Pacemaker - Surgical History Surgical History: Surgical History (Last Reviewed 04/27/18 @ 08:52 by Ralph Pink MD) H/O varicose vein ligation and stripping History of prior ablation treatment Hx of bilateral cataract extraction Hx of tonsillectomy - Family History Family History: Family History (Last Updated 04/27/18 @ 08:52 by Ralph Pink MD) Other Family history non-contributory - Social History I have reviewed the patient's Social History: Yes - Tobacco History Second Hand Smoke Exposure: No Smoking Status: Never smoker - Alcohol History How Often Do You Have a Drink Containing Alcohol: Never - Substance Use History Substance History: No History of Abuse - Travel History Recent Travel in the [facility] Within the Last 8 Weeks: No Recent Travel Out of the Country Within the Last 8 Weeks: No - Immunization History Tetanus Immunization: >5 Years Hx Influenza Vaccine This Season: Yes Medications and Allergies Active Medications: Active Medications Acetaminophen (Tylenol) 650 mg PO Q4H PRN PRN Reason: Temp > 100.4 Hydrocodone Bitart/Acetaminophen ([place] 5/325) 1 tab PO Q4H PRN PRN Reason: pain 1 - 5, Last Admin: 04/27/18 05:35 Dose: 1 tab Al Hydroxide/Mg Hydroxide (Milk Of [place]) 30 ml PO Q12H PRN PRN Reason: Mild Constipation Atorvastatin Calcium (Lipitor) 40 mg PO DAILY [facility] Last Admin: 04/26/18 09:58 Dose: 40 mg Calcium Carbonate (Oscal) 500 mg PO BID [facility] Last Admin: 04/26/18 20:30 Dose: 500 mg Diphenhydramine HCl (Benadryl) 25 mg PO Q6H PRN PRN Reason: ITCHING Hydromorphone HCl (Dilaudid Pf Inj) 0.5 mg IV.PUSH Q4H PRN PRN Reason: PAIN 6-10 Last Admin: 04/26/18 13:45 Dose: 0.5 mg Potassium Chloride/Sodium Chloride (Potassium Chlor 20 Meq/Nacl 0.45% Inj) 1, 000 mls @ 50 mls/hr IV.CONT .Q20H E[facility] Stop: 04/27/18 10:14 Last Infusion: 04/26/18 14:00 Dose: 50 mls/hr Lactated Ringer's (Lr 1000 Ml Inj) 1,000 mls @ 30 mls/hr IV.SIG .Q24H ESHA Stop: 04/28/18 03:44 Last Admin: 04/27/18 06:25 Dose: 30 mls/hr Sodium Chloride (Ns Inj) 500 mls @ 30 mls/hr IV.SIG .Q10H [facility] Cefazolin Sodium 2,000 mg/ (Sodium Chloride) 100 mls @ 200 mls/hr IV.SIG Q8H [facility] Stop: 04/28/18 01:29 Lactated Ringer's (Lr 1000 Ml Inj) 1,000 mls @ 50 mls/hr IV.CONT .Q20H [facility] Lorazepam (Ativan Inj) 0.25 mg IV.PUSH Q6H PRN PRN Reason: ANXIETY AND/OR AGITATION Last Admin: 04/26/18 16:30 Dose: 0.25 mg Metoprolol Tartrate (Lopressor) 25 mg PO BID [facility] Last Admin: 04/27/18 06:21 Dose: 25 mg Nortriptyline HCl (Pamelor) 25 mg PO HS [facility] Last Admin: 04/26/18 20:29 Dose: 25 mg Ondansetron HCl (Zofran Inj) 4 mg IV.PUSH Q6H PRN PRN Reason: NAUSEA OR VOMITING Senna/Docusate Sodium (Nichol-Colace) 1 tab PO BID [facility] Last Admin: 04/26/18 20:30 Dose: 1 tab Sodium Chloride (Ns Flush) 2 ml IV.FLUSH PRN PRN PRN Reason: FLUSH AFTER USING IV ACCESS Vitamin D (Vitamin D3) 5,000 unit PO DAILY [facility] Allergies Allergy/AdvReac Type Severity Reaction Status Date / Time codeine Allergy Severe Nausea Unverified 04/25/18 14:12 monosodium glutamate Allergy Severe Anaphylaxis Unverified 04/25/18 14:12 lovastatin AdvReac Intermediate ELEVATED Unverified 04/25/18 14:12 LIVER ENZYMES phospholipids AdvReac Ulcers Uncoded 04/25/18 17:05 Home Medications Medication Instructions Recorded Confirmed Type atorvastatin [Lipitor] 40 mg PO DAILY 04/25/18 04/25/18 History calcium carbonate [Calcium 600] 600 mg PO BID 04/25/18 04/25/18 History cyproheptadine 4 mg PO BID 04/25/18 04/25/18 History denosumab [Prolia] 60 mg SUBCUT [id number] 04/25/18 04/25/18 History diclofenac sodium [Voltaren] 1 applicatio TOPICAL DAILY PRN 04/25/18 04/25/18 History furosemide 40 mg PO DAILY 04/25/18 04/25/18 History hydrocodone-acetaminophen [Vicodin 1 tab PO Q4-6H PRN 04/25/18 04/25/18 History HP] metoprolol tartrate 25 mg PO BID 04/25/18 04/25/18 History nortriptyline 25 mg PO HS 04/25/18 04/25/18 History potassium chloride [K-Tab] 10 meq PO DAILY 04/25/18 04/25/18 History vitamin V50-xixfi acid 1 tab PO DAILY 04/25/18 04/25/18 History vitamin K2 100 mcg PO DAILY 04/25/18 04/25/18 History warfarin [Coumadin] See Label Instructions .ROUTE 04/25/18 04/25/18 History .COMPLEX warfarin [Coumadin] See Label Instructions .ROUTE 04/25/18 04/25/18 History .COMPLEX Exam Vital signs: Vital Signs 04/26/18 12:00 04/26/18 14:15 04/26/18 16:00 Temperature 97.9 F 97.8 F Pulse Rate 83 80 Respiratory Rate 18 16 18 Blood Pressure 103/56 L 116/53 L Pulse Oximetry 92 L 04/26/18 19:35 04/26/18 22:47 04/27/18 00:00 Temperature 98.2 F Pulse Rate 86 98 H 97 H Respiratory Rate 18 Blood Pressure 103/58 L Pulse Oximetry 93 L 04/27/18 00:13 04/27/18 02:14 04/27/18 03:35 Temperature 98.4 F 97.4 F L Pulse Rate 84 86 Respiratory Rate 18 18 17 Blood Pressure 110/54 L 112/56 L Pulse Oximetry 96 98 Intake & Output 04/26/18 04/27/18 04/27/18 18:59 06:59 18:59 Intake Total 600 / 600 0 / 0 Output Total 300 / 300 800 / 800 Balance 300 / 300 -800 / -800 Weight 44.8 kg Intake: Oral 600 / 600 0 / 0 Output: Urine Amount (Catheter) 300 / 300 800 / 800 Straight 300 / 300 800 / 800 Other: # Voids 0 Date of Last Bowel Movement 04/24/18 04/25/18 # Bowel Movements 0 0 Narrative: Patient is a pleasant 87-year-old female. General: Awake and alert. No acute distress. Appears well-developed well- nourished Head: Normocephalic, atraumatic pupils are equal Neck: Soft, nontender, trachea midline Abdomen: Soft, nondistended Examination of right arm reveals pain with any attempted shoulder or elbow motion. She has significant bruising around her arm.. Skin is intact. Radial pulse is palpable. Normal capillary refill in fingers. Sensation is intact in radial, ulnar, and median nerve distributions. No lymphadenopathy noted. Examination of left arm reveals no pain or deformity with shoulder, elbow, or wrist motion. Skin is intact. Radial pulse is palpable. Normal capillary refill in fingers. Sensation is intact in radial, ulnar, and median nerve distributions. Reroller Hand strength is +5. No lymphadenopathy noted. Examination of left lower extremity reveals no pain or deformity with hip, knee , or ankle motion. Skin is intact. Sensation is intact in left foot. Dorsalis pedis pulse is palpable. Normal capillary refill and feet. Thigh and calf compartments are soft. No lymphadenopathy noted. +5 strength of ankle dorsiflexion and plantarflexion. Examination of right lower extremity reveals no pain or deformity with hip, knee , or ankle motion. Skin is intact. Sensation is intact in right foot. Dorsalis pedis pulse is palpable. Normal capillary refill and feet. Thigh and calf compartments are soft. No lymphadenopathy noted. +5 strength of ankle dorsiflexion and plantarflexion. Results - Labs Result Diagrams: 04/27/18 05:29 04/27/18 05:29 Labs: Laboratory Results - last 24 hr 04/26/18 04/27/18 04/27/18 16:43 05:29 05:29 WBC 8.9 RBC 3.05 L Hgb 9.6 L Hct 27.7 L MCV 90.7 MCH 31.5 MCHC 34.7 RDW 13.8 Plt Count 138 L MPV 10.9 Neut % (Auto) 53.8 Lymph % (Auto) 30.9 [place] % (Auto) 14.5 H Eos % (Auto) 0.3 Baso % (Auto) 0.5 Neut # (Auto) 4.8 Lymph # (Auto) 2.8 [place] # (Auto) 1.3 H Eos # (Auto) 0.0 Baso # (Auto) 0.0 WBC Differential . Differential Comment Auto diff final PT INR Sodium 137 Potassium 4.3 Chloride 101 Carbon Dioxide 30.0 Anion Gap 6 BUN 13 Creatinine 0.78 Estimated GFR 70 L Random Glucose 75 Calcium 8.6 Urine Color Bridgette Urine Clarity Hazy H Urine pH 5.0 Ur Specific [place] 1.014 Urine Protein Negative Urine Glucose (UA) Negative Urine Ketones Negative Urine Occult Blood Negative Urine Nitrate Negative Urine Bilirubin Negative Urine Urobilinogen Less than 2 Ur Leukocyte Esterase Negative Urine RBC 1 Urine WBC 1 Urine Bacteria Rare H Hyaline Casts 18 Urine Mucus Few H Micro UA Comment Cath-culture ind Ur Microscopic Review Not Reportable Urine Culture Comments Cath-cult indicated 04/27/18 05:29 WBC RBC Hgb Hct MCV MCH MCHC RDW Plt Count MPV Neut % (Auto) Lymph % (Auto) [place] % (Auto) Eos % (Auto) Baso % (Auto) Neut # (Auto) Lymph # (Auto) [place] # (Auto) Eos # (Auto) Baso # (Auto) WBC Differential Differential Comment PT 12.4 H INR 1.2 Sodium Potassium Chloride Carbon Dioxide Anion Gap BUN Creatinine Estimated GFR Random Glucose Calcium Urine Color Urine Clarity Urine pH Ur Specific [place] Urine Protein Urine Glucose (UA) Urine Ketones Urine Occult Blood Urine Nitrate Urine Bilirubin Urine Urobilinogen Ur Leukocyte Esterase Urine RBC Urine WBC Urine Bacteria Hyaline Casts Urine Mucus Micro UA Comment Ur Microscopic Review Urine Culture Comments - Diagnostic results Elbow x-ray: report reviewed, image reviewed Assessment and Plan - Assessment and Plan Channing had a fall resulting in right femur periprosthetic fracture. Treatment options were discussed. There is significant displacement of the fracture. The risk and benefits of surgical and nonsurgical options were discussed. Patient would like to proceed with surgery. Her INR was initially 3.0. This will need to be corrected prior to surgery. The risk and benefits of surgery were discussed in depth with patient. The risk of surgery include bleeding, infection, injuries to arteries, nerves, or blood vessels, infection, wound complications, nonunion, malunion, painful hardware, weakness or numbness of hand, and need for further surgery. I also discussed medical complications including blood clots, pneumonia, stroke, heart attack, and . Informed consent was obtained and all questions were answered. N.p.o.--plan on surgery this morning Calcium and vitamin D supplementation Physical therapy consult--nonweightbearing right arm Follow-up with Dr. Pink in 2 weeks ONOFRE Carlson A mid-level provider in my office (nurse practitioner or physician medical assistant ob gyn) may see this patient on follow-up visits and continue to implement the objectives of this plan including: Starting or adjusting medications, injections , cast application, orthotics, brace application, physical therapy, radiological studies (including x-ray, MRI, CT, ultrasound, bone scan), vascular studies, neurologic studies, specialist consultation, and proceeding with surgical management, as appropriate.
--- NOTE | 2018-04-27 08:57 | P.OP ---
- Preoperative Diagnosis (1) Fracture, humerus closed Date of procedure: 04/27/18 Procedure: Open reduction internal fixation right humerus fracture Anesthesia: GETA Surgeon: Ralph Pink MD Wheel Truer: ROMA Frost PA-C The surgical procedure was assisted by my physician conservation assistant. My P.A. presence was necessary throughout this case for the manipulation and positioning of the surgical extremity. My P.A. was assisting me throughout the duration of this procedure. The skill set of a physician conservation assistant was medically necessary to complete this procedure. During the surgical case the operating room surgical technologist was working at the back table and the physician conservation assistant was directly assisting me. Operation and Findings: Implants used: Synthes Details of procedure: Patient was seen and evaluated preoperatively. Treatment options were discussed regarding humerus fracture including surgical and nonsurgical treatments. After detailed discussion of risk and benefits of procedure patient wishes to proceed with surgery. Risks of surgery include bleeding, infection, nonunion, malunion, painful hardware, loss of motion of shoulder and elbow, weakness and numbness of arm, as well as medical competitions including blood clots stroke and . Patient was brought to operating room and placed on the OR table. GETA was administered by anesthesiologist. Patient was positioned in lateral decubitus position. Extremities were well-padded. Axillary roll was placed. Operative arm and shoulder were prepped with alcohol followed by Hibiclens and draped usual sterile fashion. Timeout procedure was performed. IV antibiotics were given prior to incision. A standard posterior approach was utilized. A 10 inch incision was made along the posterior arm. Subcutaneous tissues was dissected with Bovie. The triceps muscle was split midline. Distally the lateral border of the triceps was elevated the radial nerve was identified and protected throughout the procedure. The nerve was intact. The fracture was identified. Soft tissue was removed from the fracture site. Fracture site was cleaned with curettes. At this point the fracture was reduced using fracture tenaculums. Multiplanar fluoroscopy confirmed excellent of fracture. 2.7 cortical lag screws were used to compress fracture fragments. A Synthes 3.5 plate was contoured to fit the humerus. The plate was placed underneath the radial nerve and triceps muscle. Plate was provisionally held the bone with K wires. 3.5 cortical screws were placed on each side of the fracture. The screws were placed to add compression to fracture. Multiple screws were placed in each side of the fracture. All screws were predrilled and premeasured for appropriate length. 2 additional cables were placed proximally around the humeral stem and plate. Care was taken to avoid injury to neurovascular structures while placing the cables. Final fluoroscopy revealed excellent alignment of fracture with well-placed hardware. Incision was thoroughly irrigated. Fascia was closed with #1 Vicryl , subcutaneous tissues closed with 3-0 Vicryl, and skin was closed with hubert. Sterile dressings were applied. Needle and sponge counts were correct. Patient was placed into a sling, and then transferred to recovery room in stable condition
[2018-04-27] MEDS: Calcium Carbonate 500 MG Tablet PO SCH ×2 (09:00→20:01)
[2018-04-27] MEDS: Senna/Docusate Sodium 8.6/50 MG Tablet PO SCH ×2 (09:00→20:01)
[2018-04-27] MEDS ORDERED: fentaNYL Citrate Inj 100 MCG/2 ML Ampul ONE (09:24)
--- NOTE | 2018-04-27 09:26 | XR ---
EXAM DATE: 04/27/2018 9:12 AM EST AGE/SEX: 87 years / Female INDICATIONS: Post-op ORIF right humerus. CLINICAL DATA: This is the patient's subsequent encounter. Patient reports that signs and symptoms h ave been present for 3 days and indicates a pain score of Nonresponsive. MEDICAL/SURGICAL HISTORY: Non-responsive. . Total right shoulder arthroplasty. COMPARISON: [facility], FOREARM RIGHT 2V, 04/25/2018. . FINDINGS: 5 intraoperative films demonstrate there has been open reduction internal fixation of a humeral fract ure with a posterior plate. There appears to be excellent alignment CONCLUSION: Fracture fixated in good position Electronically signed by: Manas Daigle MD 04/27/2018 9:25 AM EST
[2018-04-27] MEDS ORDERED: *morphine SULFATE 4 MG/ML PERIprocedure ONLY ONE ×2 (09:34→09:45)
[2018-04-27] MEDS: Calcium/Vitamin D 250/125 MG Tablet PO SCH ×3 (10:30→17:19)
--- NOTE | 2018-04-27 16:09 | P.PNIM ---
Subjective Interval history: Pt underwent ORIF of periprosthetic LUE fracture this morning Her daughter at the bedside reports that the pt has not wanted to have anything to eat or drink since surgery and has mostly been either lying in the bed or sitting in the chair with her eyes closed. Pt does respond to questioning but very briefly She had to be straight cath'd this morning with 800cc of UOP per her daughter. Physical Exam Vital signs: Last Vital Signs Temp 97.3 F L 04/27/18 12:00 Pulse 84 04/27/18 12:00 Resp 18 04/27/18 12:00 BP 109/53 L 04/27/18 12:00 Pulse Ox 98 04/27/18 12:00 Narrative: General: NAD, resting comfortably Chest: CTA Cardiac: Regular Abd: +BS, soft ND/NT Ext: LUE in sling, bandages are c/d/i Results Labs CBC & Chem 7: 04/28/18 05:12 04/28/18 05:12 Imaging Chest X-Ray 04/25/18 00:00 CONCLUSION: Interface in the right upper chest nonspecific with regard to skinfold versus pneumothorax. Recommend performing expiratory view of the chest for further evaluation. Cervical Spine CT 04/25/18 14:36 CONCLUSION: 1. No evidence of acute cervical compression fracture. 2. Degenerative changes of the cervical spine, as detailed above. 3. Mild to moderate central canal narrowing at C5-6. 4. Numerous lucencies throughout the cervical spine. While these may be degenerative, neoplasm cannot be entirely excluded. Recommend clinical correlation with history of malignancy. Forearm X-Ray 04/25/18 14:36 CONCLUSION: No acute fracture of the forearm identified. Head CT 04/25/18 14:36 CONCLUSION: Atrophy, otherwise negative for an acute process. Hip X-Ray 04/25/18 14:36 CONCLUSION: Osteopenia, negative for fracture. Humerus X-Ray 04/25/18 14:36 CONCLUSION: Displaced fracture involving the distal humerus as above. Knee X-Ray 04/25/18 14:36 CONCLUSION: Mild osteoarthritis. Chest X-Ray 04/25/18 19:08 CONCLUSION: No evidence of pneumothorax on this expiratory view of the chest. Humerus X-Ray 04/27/18 00:00 CONCLUSION: Fracture fixated in good position Assessment and Plan Plan Right periprosthetic humeral shaft fracture - This is an 87 y/o female with atrial fibrillation currently on Coumadin INR at admission was 3.0, GERD, hypertension, hyperlipidemia and pulmonary hypertension. Patient was in her normal state of health until she tripped over a rug causing her to fall. Patient presented to [facility] with complaints of right upper extremity pain and left knee pain after a trip and fall prior to arrival. - Chest X-Ray (04/25/18) -->Interface in the right upper chest nonspecific with regard to skinfold versus pneumothorax. Recommend performing expiratory view of the chest for further evaluation. - Cervical Spine CT (04/25/18) 1. No evidence of acute cervical compression fracture. 2. Degenerative changes of the cervical spine, as detailed above. 3. Mild to moderate central canal narrowing at C5-6. 4. Numerous lucencies throughout the cervical spine. While these may be degenerative, neoplasm cannot be entirely excluded. Recommend clinical correlation with history of malignancy. - Forearm X-Ray 04/25/18 No acute fracture of the forearm identified. - Head CT 04/25/18 Atrophy, otherwise negative for an acute process. - Hip X-Ray 04/25/18 Osteopenia, negative for fracture. - Humerus X-Ray 04/25/18 Displaced fracture involving the distal humerus as above. - Knee X-Ray 04/25/18Mild osteoarthritis. - Chest X-Ray 04/25/18 No evidence of pneumothorax on this expiratory view of the chest. - Orthopedic surgery was consulted at admission. - Due to INR of 3.0 at admission surgery was unable to be proceeded with due to bleeding risks. - Her Coumadin was held and she was given vitamin K - Repeat INR was 1.6 on 04/26 and 1.2 on 04/27. - Pt underwent Open reduction internal fixation right humerus fracture on with Dr. Early - Check bladder scan and if continues to retain urine, greater than 150cc, place Lewis Cath - Diet resumed but pt not eating or drinking. - Give some gentle IVF this evening, stop after 500mL to avoid fluid overload. - Ortho to decide about when to resume Coumadin. - PT/OT to evaluate - Pt may need SNF placement at the end of this hospitalization - Pt is a DNR Atrial fibrillation on Coumadin - INR was 3.0 at admission - Coumadin was held. Vitamin K given - Repeat INR 04/27 was 1.2 - Continue metoprolol 25 mg twice daily Hypertension - Continue metoprolol 25 mg p.o. twice daily as BP allows Hyperlipidemia - Continue atorvastatin 40 mg p.o. daily DVT prophylaxis bilateral SCDs Progress Note: Quality VTE Deep Vein Thrombosis/Pulmonary Embolism Present on Admission: No
[2018-04-27] MEDS: ceFAZolin 2 GM Premix Inj 2 GM/50 ML PIGGYBACK IV.SIG SCH ×2 (17:19→23:30)
[2018-04-27] MEDS: Nortriptyline 25 MG Capsule PO SCH (20:01)
[2018-04-28 05:50] LABS: Baso % (Auto) 0.1 % (0.0-2.0); Eos % (Auto) 0.1 % (0.0-4.0); Hematocrit 26.3 % (35.0-46.0); Hemoglobin 8.6 gm/dL (11.6-15.3); Lymph # (Auto) 1.7 th/mm3 (1.0-4.8); Lymph % (Auto) 14.4 % (9.0-44.0); Mean Corpuscular HGB Conc 32.6 % (32.0-36.0); Mean Corpuscular Hemoglobin 30.6 pg (27.0-34.0); Mean Corpuscular Volume 93.8 fL (80.0-100.0); Mean Platelet Volume 10.6 fL (7.0-11.0); Mono # (Auto) 1.4 th/mm3 (0.0-0.9); Mono % (Auto) 12.1 % (0.0-8.0); Neut # (Auto) 8.7 th/mm3 (1.8-7.7); Neut % (Auto) 73.3 % (16.0-70.0); Platelet Count 144 th/mm3 (150-450); Red Cell Distribution Width 14.3 % (11.6-17.2); White Blood Count 11.9 th/mm3 (4.0-11.0)
[2018-04-28 06:07] LABS: Calcium 8.6 mg/dL (8.5-10.1); Carbon Dioxide 28.2 meq/L (21.0-32.0); Magnesium 1.8 mg/dL (1.5-2.5); Potassium 4.4 meq/L (3.5-5.1)
--- NOTE | 2018-04-28 06:40 | P.PNOP ---
Subjective Interval history: Resting comfortably with no new complaints Physical Exam Vital signs: Vital Signs 04/27/18 09:15 04/27/18 09:30 04/27/18 09:45 Temperature 97.1 F L 97.2 F L Pulse Rate 81 82 80 Respiratory Rate 20 16 16 Blood Pressure 128/58 L 123/58 L 95/51 L Pulse Oximetry 96 96 95 04/27/18 10:00 04/27/18 10:10 04/27/18 10:25 Temperature 97.6 F 97.6 F Pulse Rate 80 80 Respiratory Rate 20 20 Blood Pressure 103/51 L 108/52 L Pulse Oximetry 99 98 04/27/18 12:00 04/27/18 16:00 04/27/18 19:23 Temperature 97.3 F L 97.0 F L 97.9 F Pulse Rate 84 89 80 Respiratory Rate 18 18 17 Blood Pressure 109/53 L 100/54 L 126/58 L Pulse Oximetry 98 99 99 04/27/18 19:49 04/27/18 23:23 04/28/18 03:25 Temperature 97.1 F L 97.9 F Pulse Rate 83 78 Respiratory Rate 18 18 Blood Pressure 121/56 L 121/66 Pulse Oximetry 99 92 L Intake & Output 04/27/18 04/27/18 04/28/18 06:59 18:59 06:59 Intake Total 0 / 0 650 / 650 290 / 290 Output Total 800 / 800 100 / 100 750 / 750 Balance -800 / -800 550 / 550 -460 / -460 Weight 44.8 kg 44.8 kg Intake: IV 50 / 50 50 / 50 Ancef 2 GM Premix Inj 2 gm In 50 / 50 50 / 50 50 ml @ 100 mls/hr IV.SIG Q8H [facility] Rx#:[id number] Oral 0 / 0 240 / 240 Anesthesia Amount 600 / 600 Output: Estimated Blood Loss 100 / 100 Urine Amount (Catheter) 800 / 800 750 / 750 Indwelling Urethral Catheter 750 / 750 Straight 800 / 800 Other: Date of Last Bowel Movement 04/25/18 04/25/18 # Bowel Movements 0 0 Narrative: Right upper extremity: Clean dry dressings intact. Sling and swath in place. Intact sensation of her radial ulnar and median nerve distributions. She has good capillary refills. She has full extension flexion of all fingers - Urinary Catheter Management Straight Cath placed during this visit: yes, but has since been removed by the nurse Reason for continuing: Acute urinary retention Insertion date: 04/27/18 Insertion time: 18:30 Removal date: 04/27/18 Removal time: 05:30 Indwelling Urethral Catheter Cath placed during this visit: no Results - Labs CBC & Chem 7: 04/28/18 05:12 04/28/18 05:12 Laboratory Results - last 24 hr 04/28/18 04/28/18 05:12 05:12 WBC 11.9 H RBC 2.80 L Hgb 8.6 L Hct 26.3 L MCV 93.8 MCH 30.6 MCHC 32.6 RDW 14.3 Plt Count 144 L MPV 10.6 Neut % (Auto) 73.3 H Lymph % (Auto) 14.4 [place] % (Auto) 12.1 H Eos % (Auto) 0.1 Baso % (Auto) 0.1 Neut # (Auto) 8.7 H Lymph # (Auto) 1.7 [place] # (Auto) 1.4 H Eos # (Auto) 0.0 Baso # (Auto) 0.0 WBC Differential . Differential Comment Auto diff final Sodium 136 Potassium 4.4 Chloride 100 Carbon Dioxide 28.2 Anion Gap 8 BUN 11 Creatinine 0.69 Estimated GFR 80 L Random Glucose 68 L Calcium 8.6 Magnesium 1.8 Microbiology 04/26/18 16:43 Catheterized Urine Urine Culture - Preliminary No growth in 24 hours - Imaging Impressions Humerus X-Ray 04/27/18 00:00 CONCLUSION: Fracture fixated in good position Assessment and Plan - Assessment and Plan Right periprosthetic humeral shaft fracture status post open reduction internal fixation POD 1 Nonweightbearing right upper extremity Daily dressing changes beginning POD 2 with Xeroform 4 x 4's and Stewart wrap Sling and swath at all times except for physical therapy to work on passive range of motion of shoulder and pendulum swings Restart Coumadin at home dose Repeat INR tomorrow morning Case management for rehab placement possibly tomorrow Follow-up appointment with Dr. Early or PA in 2 weeks
--- NOTE | 2018-04-28 07:15 | XR ---
EXAM DATE: 04/28/2018 7:02 AM EST AGE/SEX: 87 years / Female INDICATIONS: Short of breath, evaluate congestive heart failure CLINICAL DATA: This is the patient's subsequent encounter. Patient reports that signs and symptoms h ave been present for 4 - 6 days and indicates a pain score of Nonresponsive. MEDICAL/SURGICAL HISTORY: Congestive heart failure. Hypertension. Cardiovascular disease. ri ght humerus fracture Pacemaker. ORIF right humerus COMPARISON: [facility], CHEST EXPIRATION ONLY, 04/25/2018. . FINDINGS: A single AP portable semierect view of the chest obtained and again demonstrates the left subclavian AV sequential transvenous pacer. There is a small linear interface now noted in the region of the rig ht lung apex which appears to extend off the lateral chest wall and may represent a skin fold or over lying artifact. This measures up to 1.6 cm in the lung apex. This is smaller in size than on the prio r study. There is new hazy opacity in the perihilar regions and both lung bases. Both costophrenic an gles appear blunted. The heart size is at the upper limits of normal. CONCLUSION: 1. Probable skinfold in the right lung apex. This is unlikely to represent a pneumothorax given the improvement since the prior studies 2. Hazy opacity in the perihilar regions and both lung bases which may represent infiltrate and/or e ffusions. Electronically signed by: Billy Kolb MD 04/28/2018 7:13 AM EST
[2018-04-28] MEDS: Enoxaparin Inj 30 MG/0.3 ML Syringe SQ SCH (09:40)
[2018-04-28] MEDS: Senna/Docusate Sodium 8.6/50 MG Tablet PO SCH ×2 (09:41→21:59)
[2018-04-28] MEDS: Calcium Carbonate 500 MG Tablet PO SCH ×2 (09:41→21:59)
[2018-04-28] MEDS: Calcium/Vitamin D 250/125 MG Tablet PO SCH ×3 (09:42→18:00)
[2018-04-28] MEDS: Metoprolol Tartrate 25 MG Tablet PO SCH ×2 (09:42→22:00)
[2018-04-28] MEDS: ceFAZolin 2 GM Premix Inj 2 GM/50 ML PIGGYBACK IV.SIG SCH (09:44)
--- NOTE | 2018-04-28 12:56 | P.PNIM ---
Subjective Interval history: pt in chair. a little restless daugher present. Physical Exam Vital signs: Last Vital Signs Temp 98.2 F 04/28/18 08:00 Pulse 83 04/28/18 08:00 Resp 19 04/28/18 08:00 BP 113/51 L 04/28/18 08:00 Pulse Ox 100 04/28/18 08:00 Narrative: heart reg lung diminished bases abd s/nt ext no pitting right arm sling. Results Labs CBC & Chem 7: 04/28/18 05:12 04/28/18 05:12 Assessment and Plan Plan Right periprosthetic humeral shaft fracture - This is an 87 y/o female with atrial fibrillation currently on Coumadin INR at admission was 3.0, GERD, hypertension, hyperlipidemia and pulmonary hypertension. Patient was in her normal state of health until she tripped over a rug causing her to fall. Patient presented to [facility] with complaints of right upper extremity pain and left knee pain after a trip and fall prior to arrival. - Chest X-Ray (04/25/18) -->Interface in the right upper chest nonspecific with regard to skinfold versus pneumothorax. Recommend performing expiratory view of the chest for further evaluation. - Cervical Spine CT (04/25/18) 1. No evidence of acute cervical compression fracture. 2. Degenerative changes of the cervical spine, as detailed above. 3. Mild to moderate central canal narrowing at C5-6. 4. Numerous lucencies throughout the cervical spine. While these may be degenerative, neoplasm cannot be entirely excluded. Recommend clinical correlation with history of malignancy. - Forearm X-Ray 04/25/18 No acute fracture of the forearm identified. - Head CT 04/25/18 Atrophy, otherwise negative for an acute process. - Hip X-Ray 04/25/18 Osteopenia, negative for fracture. - Humerus X-Ray 04/25/18 Displaced fracture involving the distal humerus as above. - Knee X-Ray 04/25/18Mild osteoarthritis. - Chest X-Ray 04/25/18 No evidence of pneumothorax on this expiratory view of the chest. - Orthopedic surgery was consulted at admission. - Due to INR of 3.0 at admission surgery was unable to be proceeded with due to bleeding risks. - Her Coumadin was held and she was given vitamin K - Repeat INR was 1.6 on 04/26 and 1.2 on 04/27. - Pt underwent Open reduction internal fixation right humerus fracture on with Dr. Early - PT is dnr wallre replaced for retention cxr showed some perihilar infiltrate/atelectasis vs fluid. daughter will encourage breathing exercises resume her lasix.. repeat cxr in AM. prn ativan for agitation. coumadin resumed if stable plan for snf tomorrow. Atrial fibrillation on Coumadin - INR was 3.0 at admission - Coumadin was held. Vitamin K given - Repeat INR 04/27 was 1.2 - Continue metoprolol 25 mg twice daily Hypertension - Continue metoprolol 25 mg p.o. twice daily as BP allows Hyperlipidemia - Continue atorvastatin 40 mg p.o. daily DVT prophylaxis bilateral SCDs Progress Note: Quality VTE Deep Vein Thrombosis/Pulmonary Embolism Present on Admission: No
[2018-04-28] MEDS ORDERED: LORazepam 0.5 MG Tablet PO PRN (12:57)
[2018-04-28] MEDS: Furosemide 40 MG Tablet PO SCH (15:00)
[2018-04-28] MEDS: Nortriptyline 25 MG Capsule PO SCH (21:59)
--- NOTE | 2018-04-29 06:43 | XR ---
EXAM DATE: 04/29/2018 6:39 AM EST AGE/SEX: 87 years / Female INDICATIONS: Short of breath CLINICAL DATA: This is the patient's subsequent encounter. Patient reports that signs and symptoms h ave been present for 4 - 6 days and indicates a pain score of 10/10. MEDICAL/SURGICAL HISTORY: Congestive heart failure. Hypertension. Cardiovascular disease. ri ght humerus fracture Pacemaker. ORIF right humerus COMPARISON: [facility], CHEST 1V SINGLE AP, 04/28/2018. . FINDINGS: There is mild dextroconvex curvature of the lumbar spine centered around L3. No fracture or subluxati on demonstrated. Vertebral bodies have normal height. Moderate severity disc space narrowing with left greater than right facet osteoarthritis at L3/L4, L4 /L5 and L5/S1 milder disc facet changes seen at L1/L2 and L2/L3 mild disc There is mild osteoarthritis of both sacroiliac joints. Axial mild scoliosis with multilevel as descr ibed. But mostly lower fracture or subluxation lumbar spine. CONCLUSION: Electronically signed by: Fred Stein MD 04/29/2018 6:42 AM EST
--- NOTE | 2018-04-29 06:59 | P.PNOP ---
Subjective Interval history: POD 2 s/p ORIF right periprosthetic humerus confused and demented. daughter at bedside answering questions. reports patient has really been confused Physical Exam Vital signs: Vital Signs 04/28/18 08:00 04/28/18 12:30 04/28/18 16:30 Temperature 98.2 F 98 F 98.2 F Pulse Rate 82 82 81 Respiratory Rate 19 19 18 Blood Pressure 113/51 L 106/56 L 113/81 Pulse Oximetry 100 100 85 L 04/28/18 19:50 04/28/18 20:00 04/28/18 23:55 Temperature 98.4 F 98.5 F Pulse Rate 81 81 81 Respiratory Rate 12 16 Blood Pressure 108/51 L 112/75 Pulse Oximetry 94 L 93 L 04/29/18 00:03 04/29/18 04:25 Temperature 97.6 F Pulse Rate 80 96 H Respiratory Rate 15 Blood Pressure 123/58 L Pulse Oximetry 93 L Intake & Output 04/28/18 04/28/18 04/29/18 06:59 18:59 06:59 Intake Total 290 / 290 420 / 420 480 / 480 Output Total 750 / 750 400 / 400 450 / 450 Balance -460 / -460 20 / 20 30 / 30 Weight 44.8 kg 44.8 kg Intake: IV 50 / 50 Ancef 2 GM Premix Inj 2 gm In 50 / 50 50 ml @ 100 mls/hr IV.SIG Q8H [facility] Rx#:[id number] Oral 240 / 240 420 / 420 480 / 480 Output: Urine Amount (Catheter) 750 / 750 400 / 400 450 / 450 Indwelling Urethral Catheter 750 / 750 400 / 400 450 / 450 Other: Date of Last Bowel Movement 04/25/18 04/28/18 04/28/18 # Bowel Movements 0 # Incontinent Bowel Movements 1 Narrative: RUE: dressings clean and dry. intact. +sling. moves fingers freely - Urinary Catheter Management Straight Cath placed during this visit: yes, but has since been removed by the nurse Reason for continuing: Acute urinary retention Insertion date: 04/27/18 Insertion time: 18:30 Removal date: 04/27/18 Removal time: 05:30 Indwelling Urethral Catheter Cath placed during this visit: no Reason for continuing: Acute urinary retention Results - Labs CBC & Chem 7: 04/28/18 05:12 04/28/18 05:12 Microbiology 11/13/18 16:43 Catheterized Urine Urine Culture - Final No growth in 48 hours - Imaging Impressions Chest X-Ray 04/28/18 06:00 CONCLUSION: 1. Probable skinfold in the right lung apex. This is unlikely to represent a pneumothorax given the improvement since the prior studies 2. Hazy opacity in the perihilar regions and both lung bases which may represent infiltrate and/or effusions. Chest X-Ray 04/29/18 06:00 CONCLUSION: Assessment and Plan - Assessment and Plan 1) Right periprosthetic humeral shaft fracture status post open reduction internal fixation POD 2 Nonweightbearing right upper extremity Daily dressing changes beginning POD 2 with Xeroform 4 x 4's and Stewart wrap Sling and swath at all times except for physical therapy to work on passive range of motion of shoulder and pendulum swings Restart Coumadin at home dose Case management for rehab placement ortho clear for Dc to rehab when arrangements made Follow-up appointment with Dr. Early or [place] in 2 weeks [facility] Prescription Drug Monitoring Database has been queried and verified prior to prescribing the controlled substance. Acute pain exception. This patient has normal, predicted, physiological, and time limited response to an adverse mechanical stimulus associated with surgery, trauma, or acute illness as described in my notes. There is a lack of alternative treatment options other than to include the prescribed narcotic treatment for this condition.
[2018-04-29 09:35] VITALS: RESP 19
[2018-04-29] MEDS: Enoxaparin Inj 30 MG/0.3 ML Syringe SQ SCH (11:04)
[2018-04-29] MEDS: Calcium Carbonate 500 MG Tablet PO SCH (11:05)
[2018-04-29] MEDS: Senna/Docusate Sodium 8.6/50 MG Tablet PO SCH (11:05)
[2018-04-29] MEDS: Calcium/Vitamin D 250/125 MG Tablet PO SCH ×3 (11:05→17:24)
[2018-04-29] MEDS: Furosemide 40 MG Tablet PO SCH (11:05)
[2018-04-29] MEDS: Metoprolol Tartrate 25 MG Tablet PO SCH (11:06)
--- NOTE | 2018-04-29 11:10 | P.DS ---
DS: Providers Date of admission: 04/25/18 18:10 Primary care physician: Jorge Gee MD, PhD Consults: 04/25/18 18:16 Consult to Orthopedic Surgery Routine Consulting Provider: Kody Peterson [employer] Planner:: Ralph Early Reason for Consultation: right humerus fracture Notified:: Physician Spoke with:: Date Notified:: 04/25/18 Time Notified:: 18:40 Comments:: DR PETERSON WILL TAKE THIS CONSULT Ordering Provider: VICKY 04/28/18 09:21 HUB Only Consult Order Routine Consulting Provider: Han Box 04/29/18 09:16 HUB Only Consult Order Routine Consulting Provider: [facility],Agency Brief History from admission: This is an 87-year-old female patient with past medical history which includes atrial fibrillation currently on Coumadin INR admission 3.0, GERD, hypertension, hyperlipidemia and pulmonary hypertension. Patient was in her normal state of health until she tripped over a rug causing her to fall. Patient presented to [facility] with complaints of right upper extremity pain and left knee pain after a trip and fall prior to arrival. She reports she tripped over a rug. She denies head injury loss of consciousness., altered sensation or weakness of the extremities. Pain is localized to the right upper extremity and left anterior knee. Severity is moderate. Aggravated by movement of the extremity and palpation. Slightly relieved with rest. Patient denies shortness of breath chest pain nausea vomiting diarrhea constipation fevers or chills. PMH: atrial fibrillation currently on Coumadin INR admission 3.0, GERD, hypertension , hyperlipidemia and pulmonary hypertension PSXH: Appendectomy, needle biopsy of the breast, cataract surgery, AV node ablation, colonoscopy, EGD, hemorrhoidectomy, nerve block trans-foraminal epidural cervical, pacemaker placement, total shoulder repair, tonsillectomy and adenoidectomy, THAO/BSO and ligation of varicose veins FMH: Reviewed and noncontributory Social history: Denies EtOH use tobacco use or illicit drug use DS: Summary Right periprosthetic humeral shaft fracture - This is an 87 y/o female with atrial fibrillation currently on Coumadin INR at admission was 3.0, GERD, hypertension, hyperlipidemia and pulmonary hypertension. Patient was in her normal state of health until she tripped over a rug causing her to fall. Patient presented to [facility] with complaints of right upper extremity pain and left knee pain after a trip and fall prior to arrival. Humerus X-Ray (04/25/18) noted displaced fracture involving the distal humerus as above. Cervical Spine CT (04/25/18) -- > 1. No evidence of acute cervical compression fracture. 2. Degenerative changes of the cervical spine, as detailed above.3. Mild to moderate central canal narrowing at C5-6. 4. Numerous lucencies throughout the cervical spine. While these may be degenerative, neoplasm cannot be entirely excluded. Recommend clinical correlation with history of malignancy. Other imaging studies at admission included: - Chest X-Ray (04/25/18) -->Interface in the right upper chest nonspecific with regard to skinfold versus pneumothorax. - Forearm X-Ray (04/25/18) --> No acute fracture of the forearm identified. - Head CT (04/25/18) --> Atrophy, otherwise negative for an acute process. - Hip X-Ray (04/25/18) --> Osteopenia, negative for fracture. - Knee X-Ray (04/25/18) -->Mild osteoarthritis. - Chest X-Ray (04/25/18) --> No evidence of pneumothorax on this expiratory view of the chest. Orthopedic surgery was consulted at admission. Due to INR of 3.0 at admission surgery was unable to be proceeded with due to bleeding risks. Her Coumadin was held and she was given vitamin K. Repeat INR was 1.6 on 04/26 and 1.2 on . Pt underwent Open reduction internal fixation right humerus fracture on with Dr. Early Post-operatively Lewis had to be replaced for retention. CXR on 04/28/18 showed some perihilar infiltrate/atelectasis vs fluid. This was discussed with the pts daughter who will continue to encourage breathing exercises. Her Lasix was resumed on 04/28/18. Repeat CXR on 04/29/18 with improved aeration compared to the CXR on 04/28. Pt was receiving Lovenox 40mg daily for DVT prophylaxis and Coumadin was resumed on 04/28 at home dose of 3mg on and 1.5mg on . Pt will have a recheck on her PT/INR every Wed-Th while at rehab She will need to followup with Dr. Early in 2 weeks Pt is to followup with Dr. Gee 1 week after discharge from SNF. Atrial fibrillation on Coumadin Hypertension - Continue metoprolol 25 mg twice daily Hyperlipidemia - Continue atorvastatin 40 mg p.o. daily Time Spent with Patient Total time spent providing and/or coordinating discharge services: Quality: VTE Deep Vein Thrombosis/Pulmonary Embolism Present on Admission: No Results Impressions ITS Impressions Cervical Spine CT 04/25/18 14:36 CONCLUSION: 1. No evidence of acute cervical compression fracture. 2. Degenerative changes of the cervical spine, as detailed above. 3. Mild to moderate central canal narrowing at C5-6. 4. Numerous lucencies throughout the cervical spine. While these may be degenerative, neoplasm cannot be entirely excluded. Recommend clinical correlation with history of malignancy. Forearm X-Ray 04/25/18 14:36 CONCLUSION: No acute fracture of the forearm identified. Head CT 04/25/18 14:36 CONCLUSION: Atrophy, otherwise negative for an acute process. Noel Bonds MD FACR . Hip X-Ray 04/25/18 14:36 CONCLUSION: Osteopenia, negative for fracture. Knee X-Ray 04/25/18 14:36 CONCLUSION: Mild osteoarthritis. Humerus X-Ray 04/27/18 00:00 CONCLUSION: Fracture fixated in good position Chest X-Ray 04/29/18 06:00 CONCLUSION: Discharge Plan Discharge Disposition Patient Disposition: 03 Discharge to SNF Discharge Condition Condition: Stable Discharge Order Discharge Orders: Discharge Order (Routine); Ordered 04/29/18 Ordered By: Brie Ely Orthopedic Clear for Discharge (Routine); Ordered 04/29/18 Ordered By: Terence Metzger Discharge Details Anticipated Discharge Date: 04/29/18 Discharge Comment: Followup with Dr. Early in [address] Gee 1 week after discharge from SNF Physicians Team ED Provider: Emre Cruz ED Midlevel Provider: Aga Hernandes Primary Care Provider: Jorge Gee Attending Provider: Jesus Cohen Other Providers: Kody Peterson ; Ralph Early ; [facility] ; [facility] & [facility],Agency Rxs /Orders / Referrals /Forms Prescriptions: New hydrocodone-acetaminophen 5-325 mg Tablet 1 tab PO Q4H PRN (Reason: Pain) Qty: 40 RF: 0 Continue furosemide 40 mg Tablet 40 mg PO DAILY RF: 0 metoprolol tartrate 25 mg Tablet 25 mg PO BID RF: 0 potassium chloride [K-Tab] 10 mEq Tablet Extended Release 10 meq PO DAILY RF: 0 cyproheptadine 4 mg Tablet 4 mg PO BID RF: 0 atorvastatin [Lipitor] 40 mg Tablet 40 mg PO DAILY RF: 0 warfarin [Coumadin] 3 mg Tablet See Label Instructions .ROUTE .COMPLEX RF: 0 warfarin [Coumadin] 1 mg Tablet See Label Instructions .ROUTE .COMPLEX RF: 0 nortriptyline 25 mg Capsule 25 mg PO HS RF: 0 calcium carbonate [Calcium 600] 600 mg calcium (1,500 mg) Tablet 600 mg PO BID RF: 0 vitamin C47-hekld acid 500-400 mcg Tablet 1 tab PO DAILY RF: 0 vitamin K2 40 mcg Tablet 100 mcg PO DAILY RF: 0 denosumab [Prolia] 60 mg/mL Syringe 60 mg SUBCUT [id number] RF: 0 Discontinued hydrocodone-acetaminophen [Vicodin HP] 10-300 mg Tablet 1 tab PO Q4-6H PRN (Reason: Pain) RF: 0 diclofenac sodium [Voltaren] 1 % Gel 1 applicatio Topical DAILY PRN (Reason: Pain) RF: 0 Referrals: Ralph Early MD [Physician] - See Instructions (2 weeks) Jorge Gee MD, PhD [Primary Care Provider] - See Instructions Status ED Status: Left Department
[2018-04-29 17:00] LABS: INR 1.2 Ratio
[2018-04-29 17:21] VITALS: BP 116/56; PULSE 85; TEMP 97; O2SAT 98
== END 2018-04-29 17:50 | DRG 493 ==
LOC: PHEFT 14:05 → PHEDH 18:10 → N06 20:32
PROVIDERS: ADMIT Hospitalist; ATTEND Hospitalist
CPT/HCPCS: 70450; 71010; 71045; 72125; 73060; 73090; 73502; 73564; 76000; 80048; 81001; 83735; 85025; 85610; 85730; 87086; 90772; 90774; 93005; 94150; 96372; 96374; 97110; 97116; 97162; 97166; 97167; 97530; 97535; 99285; C1713; C1776; C8952; J0131; J0690; J1170; J1580; J1650; J2060; J2250; J2270; J2405; J2704; J3010; J3370; J3480; J7120; P9612